=== PATIENT | male | born 1975 | race Caucasian/White ===

== ENCOUNTER 2017-03-12 19:43 | Emergency (ER) | payer MEDICAID ==
[2017-03-12 20:02] VITALS: BP 118/82
[2017-03-12 20:34] LABS: Hematocrit 45.3 % (42.0-52.0); Hemoglobin 15.8 gm/dL (13.5-18.0); Mean Cell Volume 87.5 fl (78-100); Mean Corpuscular Hemoglobin 30.5 pg (27-31); Mean Corpuscular Hgb Conc 34.9 g/dl (32-36); Mean Platelet Volume 9.4 fl (6.0-9.5); Neutrophil # 2.9 K/mm3 (1.3-6.0); Neutrophil % 59.7 % (42-75.0); Platelet Count 153 K/mm3 (150-450); Red Blood Count 5.18 M/mm3 (4.7-6.0); Red Cell Distribution Width 12.8 % (11.5-14.0); White Blood Count 4.9 K/mm3 (4.0-10.5)
--- NOTE | 2017-03-12 21:38 | ERNOTE ---
Lower Extremity HPI - Narrative Date of Service: 03/12/17 - General Lower Extremities Pain: leg: right - The right leg is more muscular than the left. No edema present. Compartments are soft and non tender. Source: patient Exam Limitations: no limitations - Immun/Allergies/Home Medications Immunizations: IMMUNIZATION HX Immunizations Up to Date Yes History of Influenza Vaccine Yes Hx Pneumococcal Vaccination No Allergies/Adverse Reactions: Allergies Allergy/AdvReac Type Severity Reaction Status Date / Time Penicillins Allergy Mild Hives Verified 03/12/17 20:03 codeine [Codeine] AdvReac Mild Itching Verified 03/12/17 20:03 Home Medications: HOME MEDICATIONS Gemfibrozil [Lopid] 600 mg PO BID 06/14/13 [Last Taken Unknown] Escitalopram Oxalate [Lexapro] 20 mg PO DAILY 03/28/14 [Last Taken Unknown] traZODone HCL [Desyrel] 100 mg PO HS 03/28/14 [Last Taken Unknown] Blood Sugar Diagnostic, Rob [Accu-Chek Compact] 1 each MC DAILY 09/26/14 [Last Taken Unknown] Oxybutynin Chloride [Ditropan] 5 mg PO BID 09/26/14 [Last Taken Unknown] clonazePAM [Klonopin] 1 mg PO TID PRN 06/27/15 [Last Taken Unknown] Lisinopril [Zestril] 20 mg PO DAILY 03/11/17 [Last Taken Unknown] metFORMIN HCL [Glucophage] 1,000 mg PO BIDWM 03/11/17 [Last Taken Unknown] Naproxen 500 mg PO BID #30 tablet. 03/12/17 [Last Taken Unknown] - History of Present Illness Narrative: 41 year old that was concerned about having a DVT in the right leg. Claims that there is pain in the right thigh that was rated 7/10 but appears very relaxed. no pain medications were taken prior to being seen in the ED. Denies any previous PE, DVT, trauma, recent surgery, fevers, chills, numbness or tingling in the lower extremities. Location of Incident: other Method of Injury: Reports: other - no injury Modifying Factors - (Improves): Reports: other - nothing Modifying Factors - (Worsens): Reports: other - nothing Review of Systems - Review of Systems Constitutional: Present: no symptoms reported EYE: Present: no symptoms reported ENT: Present: no symptoms reported Respiratory: Present: no symptoms reported Cardiology: Present: no symptoms reported Gastrointestinal/Abdominal: Present: no symptoms reported Genitourinary: Present: no symptoms reported Musculoskeletal: Present: See HPI Skin: Present: no symptoms reported Neurological: Present: no symptoms reported Endocrine: Present: no symptoms reported Hematologic/Lymphatic: Present: no symptoms reported Psych: Present: no symptoms reported - Patient's Past Medical History Patient History - Medical: ADHD, Anxiety, Arthritis, Chronic Pain, Diabetes Type 2, Depression, Headache, Migraines, UTI'S, Other Patient History - Cardiac/Respiratory: Asthma, Bronchitis, Hypertension, Hyperlipidemia, Pneumonia Patient History - Cancer: No Hx of Cancer Patient History - Surgical Procedures: Ear Tubes, T & A, Other Patient History - Other: None - Social History Living Situations: other Abuse History: No History of abuse Psych History: Psychiatric Hx, Hx of Anxiety, Hx of Depression, Hx of Violent Behavior, Hx of Psychiatric Tx, Current tx/ever been on anti-depressants or anti -anxiety meds Smoking Status: Former smoker Do you dip or chew tobacco: Yes Alcohol Use: none Drug Use: other - Immunizations Immunizations Up to Date: Yes Hx Pneumococcal Vaccination: No History of Influenza Vaccine: Yes Physical Exam - Physical Exam General Appearance: Present: no apparent distress Eye Exam: Normal inspection: bilateral, PERRL: bilateral Ears, Nose, Throat: Present: normal ENT inspection Neck: Present: normal inspection, supple, full range of motion Respiratory: Present: no respiratory distress, normal breath sounds Gastrointestinal/Abdominal: Present: nontender, nondistended Back Exam: Present: normal inspection Extremity Exam: Present: normal inspection, non-tender, normal range of motion, other - He was able to stand on the right leg without significant pain. No swelling or edema present in the thigh or leg. 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 - Vital Signs Patient's Vital Signs:: I have reviewed the patient's vital signs. Vital Signs: Vital Signs 03/12/17 19:55 Temperature 36.9 C Pulse Rate 99 Respiratory 18 Rate Blood Pressure 118/82 O2 Sat by Pulse 97 Oximetry - Progress/Reassessment Chief Complaint: Lower Extremity Pain/ Injury Progress:: Unchanged Progress Note-Subjective: 03/12/17 21:32 The pretest probability of a DVT was low, in addition the D Dimer was also negative. Departure Clinical Impression: Pain in right thigh - Departure Disposition: Home self-care Condition: Good Instructions: Muscle Cramps and Spasms, [id number] Print Language: Venezuelan Referrals: Malu Saravia ARNP [Primary Care Provider] - Prescriptions: Naproxen 500 mg PO BID #30 tablet.
[2017-03-12 21:47] LABS: Cocaine Ur Negative (NEGATIVE); Urine Barbiturate Negative (NEGATIVE); Urine Benzodiazepines Negative (NEGATIVE); Urine Opiates Negative (NEGATIVE); Urine PCP Negative (NEGATIVE); Urine THC Negative (NEGATIVE)
--- OUTSIDE RECORDS SUMMARY | 2017-03-12 21:50 | XMS REPORT | Continuity of Care Document ---
:1975 Author Organization [facility] ([facility]) Address [place] [address] Phone [phone] Care Team Providers Name Role Phone Pepe Díaz Primary Care Provider [phone] Source Comments This disclosure is being made pursuant to the Care Everywhere program, applicable federal and state laws, and may not contain all informaitonavailable regarding this patient.[facility] ([facility]) Active Allergies and Adverse Reactions Allergen Noted Date Severity Reactions Comments Codeine 12/11/2012 High Urticaria (Hives) Penicillins Unknown Current Medications Prescription Sig. Disp. Refills Start Date End Date Status gemfibrozil 600 Take 1 Tab by mouth 2 120 Tab 6 12/11/2012 Active mg tablet times daily with meals. Indications: HYPERTRIGLYCERIDEMIA niacin 500 mg XR Take 1 Tab by mouth at 60 Tab 6 12/11/2012 Active tablet bedtime. Indications: MIXED HYPERLIPIDEMIA buPROPion (ZYBAN) Take 1 Tab by mouth 2 84 Tab 0 12/11/2012 Active 150 mg SR tablet times daily. Take for 1 week before stopping tobacco use. Indications: SMOKING CESSATION nicotine 14 mg/24 apply 1 Patch on the skin 14 Patch 0 12/11/2012 Active hr patch daily. Indications: SMOKING CESSATION nicotine 21 mg/24 apply 1 Patch on the skin 42 Patch 0 12/11/2012 Active hr patch daily. Indications: SMOKING CESSATION nicotine 7 mg/24 apply 1 Patch on the skin 14 Patch 0 12/11/2012 Active hr patch daily. Indications: SMOKING CESSATION venlafaxine 75 mg Take 1 Tab by mouth 3 90 Tab 3 01/30/2013 Active tablet times daily. Indications: GENERALIZED ANXIETY DISORDER, MAJOR DEPRESSIVE DISORDER miconazole Powd 1 Bottle 2 times daily. 1 Bottle 3 03/28/2013 Active Indications: ABNORMAL DESQUAMATION lisinopril 10 mg Take 10 mg by mouth Active tablet daily. aspirin 81 mg EC Take 81 mg by mouth Active tablet daily. metFORMIN 1,000 Take 1,000 mg by mouth 2 Active mg tablet times daily. cloNIDine HCl 0.1 Take 0.1 mg by mouth 2 Active mg tablet times daily. traZODone 150 mg Take 300 mg by mouth at Active tablet bedtime. citalopram 20 mg Take 60 mg by mouth Active tablet daily. melatonin 3 mg Take 1 tablet (3 mg 30 tablet 4 08/19/2016 Active tablet total) by mouth at bedtime. lamoTRIgine 25 mg Take 75 mg by mouth Active tablet daily. Active Problems Problem Noted Date Diabetes mellitus screening 03/28/2013 HTN (hypertension) 12/11/2012 Dyslipidemia 12/11/2012 Tobacco abuse 12/11/2012 Depression 12/11/2012 Anxiety 12/11/2012 Polycythemia 06/16/2009 Resolved Problems Problem Noted Date Resolved Date Normal physical exam 12/11/2012 03/28/2013 Obesity 12/11/2012 03/28/2013 Immunizations Name Dates Previously Given Next Due DTaP, unspecified 12/11/2010 Social History Tobacco Use Types Packs/Day Years Used Date Former Smoker Cigarettes 2 15 Quit: 04/10/2011 Smokeless Tobacco: Current User Chew Tobacco Cessation:Counseling Given: Yes Comments: Last Filed Vital Signs Vital Sign Reading Time Taken Blood Pressure 138/92 11/30/2016 8:44 AM SERVICE ORDER CLERK Pulse 89 11/30/2016 8:44 AM SERVICE ORDER CLERK Temperature 36.3 C (97.3 F) 03/28/2013 1:12 PM CDT Respiratory Rate - - Height 1.727 m (5' 7.99") 08/19/2016 1:32 PM CDT Weight 90.266 kg (199 lb) 11/30/2016 8:44 AM SERVICE ORDER CLERK Body Mass Index 30.26 11/30/2016 8:44 AM SERVICE ORDER CLERK Oxygen Saturation 95% 11/30/2016 8:44 AM SERVICE ORDER CLERK Plan of Care Patient Goal Type Goal Weight Weight below 90 kg (199 lb) Lifestyle Quit smoking / using tobacco Date Type Specialty Providers Description 04/05/2017 Appointment Neurology Brandie Juan MD Chief Comp: Patient [address] Rep[place] [address] [phone] (Fax) Health Maintenance Due Date Last Done Comments Hepatitis B Vaccine (1 of 3 - Primary Series) 1975 Tdap Vaccine 1984 MMR Vaccine 1991 Influenza Vaccine: Seasonal (#1) 06/28/2016 Lipid Disorder Screening 12/11/2017 12/11/2012 Td Vaccine 12/11/2020 12/11/2010 Results from Last 3 Months Not on file
== END 2017-03-12 21:50 | disposition home or self-care (01) ==
LOC: ER 19:43
DX: M79.651 Pain in right thigh (principal); Z87.440 Personal history of urinary (tract) infections; F17.220 Nicotine dependence, chewing tobacco, uncomplicated; E11.9 Type 2 diabetes mellitus without complications; F41.9 Anxiety disorder, unspecified; I10 Essential (primary) hypertension; E78.5 Hyperlipidemia, unspecified; F32.9 Major depressive disorder, single episode, unspecified
CPT/HCPCS: 36415; 80307; 85025; 85379; 99284; G0481

== ENCOUNTER 2017-03-14 07:52 | Day surgery (SDC) | payer MEDICAID ==
[~2017-03-14 07:52] MED LIST: RINGERS SOLUTION,LACTATED 1,000 ML IV PRN; ceFAZolin SODIUM 1 GM VIAL IV PRN
--- OUTSIDE RECORDS SUMMARY | 2017-03-14 07:57 | XMS REPORT | Continuity of Care Document ---
:1975 Author Organization [facility] ([facility]) [place] [address] Phone [phone] Care Team Providers Name Role Phone Pepe Díaz Primary Care Provider [phone] Source Comments This disclosure is being made pursuant to the Care Everywhere program, applicable federal and state laws, and may not contain all informaitonavailable regarding this patient.[facility] ([facility]) Active Allergies and Adverse Reactions Allergen Noted [...] Taken Blood Pressure 138/92 11/30/2016 8:44 AM [facility] Pulse 89 11/30/2016 8:44 AM [facility] Temperature 36.3 C (97.3 F) 03/28/2013 1:12 PM CDT Respiratory Rate - - Height 1.727 m (5' 7.99") 08/19/2016 1:32 PM CDT Weight 90.266 kg (199 lb) 11/30/2016 8:44 AM [facility] Body Mass Index 30.26 11/30/2016 8:44 AM [facility] Oxygen Saturation 95% 11/30/2016 8:44 AM [facility] Plan of Care Patient Goal Type Goal Weight Weight below 90 kg (199 lb) Lifestyle Quit smoking / using tobacco Date Type Specialty Providers Description 04/05/2017 Appointment Neurology Brandie Juan MD Chief Comp: Patient [address] [place] [address] [phone] (Fax) Health Maintenance Due Date Last Done Comments Hepatitis B Vaccine (1 of 3 - Primary Series) 1975 Tdap Vaccine 1984 MMR Vaccine 1991 Influenza Vaccine: Seasonal (#1) 06/28/2016 Lipid Disorder Screening 12/11/2017 12/11/2012 Td Vaccine 12/11/2020 12/11/2010 Results from Last 3 Months Not on file
[2017-03-14] MEDS ORDERED: RINGERS SOLUTION,LACTATED 1,000 ML IV ONE ×2 (10:15→11:30)
[2017-03-14] MEDS ORDERED: BUPIVACAINE HCL 50 ML VIAL IJ ONE (11:50)
[2017-03-14 13:04] VITALS: BP 134/71
--- NOTE | 2017-03-14 18:21 | OR ---
Operative Report - Dictated Report Narrative: Date: 03/14/2017 Physician: Diego Boucher M.D. An/Syq 13 Nav/C2 Operator: Brandon Gonsales PA-C Preoperative diagnosis: Left carpal tunnel syndrome Postoperative diagnosis: Left carpal tunnel syndrome Procedure: Endoscopic left carpal tunnel release Anesthesia: MAC plus local Complications: None Estimated blood loss: Minimal Tourniquet time: 8 Minutes at 250 mmHg Specimens: None Retained implants: None Drains: None Indications: Mr. Suarez Is a 41-year-old gentleman who has been followed in my clinic with complaints of carpal tunnel syndrome. Physical exam as well as diagnostic testing showed compression of the median nerve compatible with carpal tunnel syndrome. Conservative measures have failed including but not limited to activity modification, medications, and/or bracing. The risks, benefits, and alternatives were discussed in clinic. The risks being bleeding, infection, nerve, tendon, blood vessel injury, persistent pain, wound competitions, weakness, palm pain, need for additional procedures, and persistent symptoms. Consent was obtained in the clinic. Procedure: After marking the correct extremity in the preoperative holding area, a timeout was performed in the operating room. IV antibiotics consisting of Ancef were administered prior to the procedure. A well-padded tourniquet was applied to the operative upper arm. The arm was exsanguinated and the tourniquet was inflated to 250 mmHg. 0.5% Marcaine without epinephrine was infused into the projected portal sites. Using Loupe magnification, a transverse incision was made in the proximal wrist flexion crease just ulnar to the ulnar to the palmaris longus tendon or in line with approximately the ring finger. Blunt dissection and hemostasis with bipolar cautery was utilized down to the forearm fascia. The forearm fascia was split longitudinally just ulnar to the palmaris longus exposing the entry into the carpal tunnel. A Gastonia was placed under the transverse carpal ligament elevating the soft tissues under the dorsal aspect of the transverse carpal ligament. This was confirmed to be under the transverse carpal ligament based on the corrugated nature of the tissue. Once we had removed soft tissues from the transverse carpal ligament, a blunt trocar and cannula was introduced under the transverse carpal ligament exiting the palm through a saba incision. The hand was then placed in a extension holding device and the camera was introduced into the cannula. A probe was utilized in order to ensure that all soft tissues were elevated off the dorsal aspect of the transverse carpal ligament and ensuring that all tissues were running transversely. No vascular or neurologic tissues were visualized. The push, followed by probe, followed by hook blades was utilized to transect the distal one half of the transverse carpal ligament. This allowed for ingress of fat. The camera was then placed distally looking proximally, and the proximal one half of the transverse carpal ligament was transected using the hook blade. This again allowed for ingress of fat. The probe blade was utilized in order to release any additional remaining fibers. Once it was felt that the transverse carpal ligament was completely transected, the blunt trocar was reintroduced into the trocar and removed in whole. A Ragnell was utilized in order to visualize the carpal tunnel ensuring that the transverse carpal ligament was completely released using a Gastonia. The distal forearm fascia was released ensuring that the median nerve was completely decompressed utilizing tenotomy scissors. Once it was felt that all the tissues overlying the median nerve were completely released, the wounds were thoroughly irrigated with saline which passed freely from the proximal to distal portal holes. Tourniquet was deflated and hemostasis was obtained with pressure as well as bipolar cautery. Once bleeding had resolved and there was no excessive bleeding , the wounds were closed with interrupted nylon. Xeroform, 4 x 4's, soft roll, and a well-padded dorsal short arm wrist splint was applied, and the patient was awoken and transferred to the postanesthesia care unit in stable condition. All sponge, needle, blade, and instrument counts were correct prior to closing the wounds. Additional 0.5% Marcaine without epinephrine was infused into the skin edges for pain control.
== END 2017-03-14 07:53 | disposition home or self-care (01) ==
LOC: AMB 07:52
PROVIDERS: ATTEND Orthopaedic Surgery
PROC: 01N54ZZ Release Median Nerve, Percutaneous Endoscopic Approach (ICD-10-PCS; principal; 2017-03-14 11:30)
DX: G56.02 Carpal tunnel syndrome, left upper limb (principal); E11.9 Type 2 diabetes mellitus without complications; I10 Essential (primary) hypertension; J45.909 Unspecified asthma, uncomplicated; F41.9 Anxiety disorder, unspecified; F32.9 Major depressive disorder, single episode, unspecified; F17.200 Nicotine dependence, unspecified, uncomplicated; Z68.28 Body mass index [BMI] 28.0-28.9, adult

== ENCOUNTER 2017-03-24 18:59 | Emergency (ER) | payer MEDICAID ==
--- OUTSIDE RECORDS SUMMARY | 2017-03-24 20:34 | XMS REPORT | Continuity of Care Document ---
:1975 Author Organization [facility] ([facility]) Address [place] [address] Phone [phone] Care Team Providers Name Role Phone Pepe Díaz Primary Care Provider [phone] Source Comments This disclosure is being made pursuant to the Care Everywhere program, applicable federal and state laws, and may not contain all informaitonavailable regarding this patient.[facility] ([facility]) Active Allergies and Adverse Reactions Allergen [...] Taken Blood Pressure 138/92 11/30/2016 8:44 AM COPRA PROCESSOR Pulse 89 11/30/2016 8:44 AM COPRA PROCESSOR Temperature 36.3 C (97.3 F) 03/28/2013 1:12 PM CDT Respiratory Rate - - Height 1.727 m (5' 7.99") 08/19/2016 1:32 PM CDT Weight 90.266 kg (199 lb) 11/30/2016 8:44 AM COPRA PROCESSOR Body Mass Index 30.26 11/30/2016 8:44 AM COPRA PROCESSOR Oxygen Saturation 95% 11/30/2016 8:44 AM COPRA PROCESSOR Plan of Care Patient Goal Type Goal Weight Weight below 90 kg (199 lb) Lifestyle Quit smoking / using tobacco Date Type Specialty Providers Description 04/05/2017 Appointment Neurology Brandie Juan MD Chief Comp: Patient [address] [place] [address] [phone] (Fax) Health Maintenance Due Date Last Done Comments Hepatitis B Vaccine (1 of 3 - Primary Series) 1975 Tdap Vaccine 1984 MMR Vaccine 1991 Influenza Vaccine: Seasonal (#1) 06/28/2016 Lipid Disorder Screening 12/11/2017 12/11/2012 Td Vaccine 12/11/2020 12/11/2010 Results from Last 3 Months Not on file
[2017-03-24 20:57] LABS: Hematocrit 44.7 % (42.0-52.0); Hemoglobin 15.5 gm/dL (13.5-18.0); Mean Corpuscular Hemoglobin 30.2 pg (27-31); Mean Corpuscular Hgb Conc 34.7 g/dl (32-36); Mean Platelet Volume 9.1 fl (6.0-9.5); Neutrophil # 4.9 K/mm3 (1.3-6.0); Neutrophil % 72.6 % (42-75.0); Platelet Count 183 K/mm3 (150-450); Red Blood Count 5.14 M/mm3 (4.7-6.0); Red Cell Distribution Width 12.9 % (11.5-14.0); White Blood Count 6.7 K/mm3 (4.0-10.5)
--- NOTE | 2017-03-24 20:58 | ERNOTE ---
Medical Problem HPI - Narrative Date of Service: 03/24/17 - General Chief Complaint: Diabetes Related Problem Time Seen by Provider: 03/24/17 20:22 Source: patient Exam Limitations: no limitations - Immun/Allergies/Home Medications Immunizations: IMMUNIZATION HX Immunizations Up to Date Yes History of Influenza Vaccine Yes Hx Pneumococcal Vaccination No Allergies/Adverse Reactions: Allergies Penicillins Allergy (Mild, Verified 03/14/17 09:57) Hives codeine [Codeine] Adverse Reaction (Mild, Verified 03/14/17 09:57) Itching Home Medications: HOME MEDICATIONS Gemfibrozil [Lopid] 600 mg PO BID 06/14/13 [Last Taken Unknown] Escitalopram Oxalate [Lexapro] 20 mg PO DAILY 03/28/14 [Last Taken Unknown] traZODone HCL [Desyrel] 100 mg PO HS 03/28/14 [Last Taken Unknown] Blood Sugar Diagnostic, Drum [Accu-Chek Compact] 1 each MC DAILY 09/26/14 [Last Taken Unknown] Oxybutynin Chloride [Ditropan] 5 mg PO BID 09/26/14 [Last Taken Unknown] clonazePAM [Klonopin] 1 mg PO TID PRN 06/27/15 [Last Taken Unknown] Lisinopril [Zestril] 20 mg PO DAILY 03/11/17 [Last Taken 03/14/17 07:00] metFORMIN HCL [Glucophage] 1,000 mg PO BIDWM 03/11/17 [Last Taken Unknown] Naproxen 500 mg PO BID #30 tablet. 03/12/17 [Last Taken Unknown] oxyCODONE HCL/ACETAMINOPHEN [Oxycodone-Acetaminophen 5-325] 1 each PO Q4H PRN # 30 tablet 03/14/17 [Last Taken Unknown] Azithromycin [Zithromax] 500 mg PO NOW #6 tab 03/24/17 [Last Taken Unknown] - History of Present History Narrative: 40-year-old male presents to the emergency room for sinus pain. States he's had for several days. Patient also states left wrist surgical site is red. Date (Duration): 03/24/17 Timing: getting worse Severity: mild Review of Systems - Review of Systems Constitutional: Present: See HPI, malaise EYE: Present: no symptoms reported ENT: Present: nose congestion Respiratory: Present: no symptoms reported Cardiology: Present: no symptoms reported Gastrointestinal/Abdominal: Present: no symptoms reported Genitourinary: Present: no symptoms reported Musculoskeletal: Present: no symptoms reported Skin: Present: See HPI, change in color - suture insertion site left wrist Neurological: Present: no symptoms reported Endocrine: Present: other - patient states at home his blood glucose was high over 300 Hematologic/Lymphatic: Present: no symptoms reported Psych: Present: no symptoms reported All Other Systems: All systems neg except as marked - Patient's Past Medical History Patient History - Medical: Anxiety, Depression Patient History - Cardiac/Respiratory: Asthma, Hypertension, Hyperlipidemia Patient History - Cancer: No Hx of Cancer Patient History - Surgical Procedures: Ear Tubes, T & A, Other Patient History - Other: None - Family History Brother Family History - Medical: History Unknown Family History - Cardiac/Respiratory: History Unknown Family History - Cancer: History Unknown Father Family History - Medical: Diabetes Type 2 Family History - Cardiac/Respiratory: No pertinent hx Family History - Cancer: No pertinent family hx Mother Family History - Medical: , No pertinent hx Family History - Cardiac/Respiratory: No pertinent hx Family History - Cancer: Bone - Social History Living Situations: parents Abuse History: No History of abuse Psych History: No pertinent hx Smoking Status: Former smoker Have you smoked in the past 12 months: Yes Do you dip or chew tobacco: Yes Patient requests Smoking Cessation Consult: No Initiate information on Smoking Cessation: No Alcohol Use: none Drug Use: other - Immunizations Immunizations Up to Date: Yes Hx Pneumococcal Vaccination: No History of Influenza Vaccine: Yes Physical Exam - Physical Exam Narrative: this provider observed patient laying sideways on the exam table with his feet propped up on a chair playing with his it help desk technician. Patient had to be asked to spit out a large wad of "dip" so that this provider could understand him during exam and perform ENT eval. Patient has sinus pressure pain upon exam. Left wrist has a small amount of redness at suture insertion site. Sutures appear loose. patient states he has tugged at them today. No s/s of infection observed. Patient is to see his surgeon on Tuesday. the rest of his exam was normal General Appearance: Present: wd/wn, alert, no apparent distress Eye Exam: Normal inspection: bilateral Ears, Nose, Throat: Present: sinus pain/drainage, normal pharynx Neck: Present: normal inspection, nontender, full range of motion Respiratory: Present: no respiratory distress, normal breath sounds, lungs clear Cardiovascular/Chest: Present: regular rate, rhythm, no murmur, normal peripheral pulses Gastrointestinal/Abdominal: Present: normal bowel sounds, nontender, soft Back Exam: Present: normal inspection, normal range of motion Extremity Exam: Present: normal inspection, normal range of motion, no edema Neurological Exam: Present: alert, oriented, normal mood/affect, no motor/ sensory deficits Skin Exam: Present: normal color, warm/dry Lymphatic Exam: Present: no adenopathy ED Progress - Results and Orders Patient's Lab Results:: I have reviewed the patient's lab results. Results and Orders: no acute findings - Vital Signs Vital Signs: Vital Signs 03/24/17 19:15 Temperature 37.6 C H Pulse Rate 110 H Respiratory 14 Rate Blood Pressure 125/73 O2 Sat by Pulse 97 Oximetry - Progress/Reassessment Chief Complaint: Diabetes Related Problem Departure - Departure Clinical Impression: Sinusitis Qualifiers: Sinusitis location: unspecified location Chronicity: acute Recurrence: non- recurrent Qualified Code(s): J01.90 - Acute sinusitis, unspecified Disposition: Home Follow Up Needed Condition: Stable Instructions: Sinusitis, Adult, [id number] Additional Instructions: Attending any previous medications as directed. Follow up with your primary care provider in the next 2-3 days. Take antibiotics as directed. He may take [id number] pain medication for sinus pressure. Return to the emergency room if symptoms persist or you are unable to be control your fever or pain. Referrals: Malu Saravia ARNP [Primary Care Provider] - Prescriptions: Azithromycin [Zithromax] 500 mg PO NOW #6 tab
[2017-03-24 21:16] LABS: Hemoglobin A1C 6.2 % (4.00-6.0)
[2017-03-24 21:18] LABS: Albumin * 3.7 gm/dl (3.4-5.0); Anion Gap 15.1 mmol/L (6.8-13.8); BUN/Creatinine Ratio 12.6 (9.0-21.6); Bilirubin, Total 0.7 mg/dL (0.0-1.1); Ca. Corrected For Albumin 8.9 mg/dL (8.4-10.2); Carbon Dioxide 24.7 mmol/L (24-32.6); Potassium 3.8 mmol/L (3.4-4.6); Total Protein 6.6 gm/dL (6.2-8.2)
[2017-03-24 21:47] VITALS: BP 141/74
== END 2017-03-24 21:45 | disposition home or self-care (01) ==
LOC: ER 18:59
DX: J01.90 Acute sinusitis, unspecified (principal); Z72.0 Tobacco use; I10 Essential (primary) hypertension; E78.5 Hyperlipidemia, unspecified; F41.8 Other specified anxiety disorders

== ENCOUNTER 2017-05-29 17:21 | Emergency (ER) | payer MEDICAID ==
--- NOTE | 2017-05-29 18:06 | ERNOTE ---
Upper Extremity HPI - Narrative Date of Service: 05/29/17 - General Extremities Pain Location: hand: left Time Seen by Provider: 05/29/17 17:57 Source: patient Exam Limitations: no limitations - Immun/Allergies/Home Medications Immunizations: IMMUNIZATION HX Immunizations Up to Date Yes History of Influenza Vaccine Yes Hx Pneumococcal Vaccination No Allergies/Adverse Reactions: Allergies Allergy/AdvReac Type Severity Reaction Status Date / Time Penicillins Allergy Mild Hives Verified 05/29/17 17:52 codeine [Codeine] AdvReac Mild Itching Verified 05/29/17 17:52 Home Medications: HOME MEDICATIONS Gemfibrozil [Lopid] 600 mg PO BID 06/14/13 [Last Taken Unknown] Escitalopram Oxalate [Lexapro] 20 mg PO DAILY 03/28/14 [Last Taken Unknown] traZODone HCL [Desyrel] 100 mg PO HS 03/28/14 [Last Taken Unknown] Blood Sugar Diagnostic, Rob [Accu-Chek Compact] 1 each MC DAILY 09/26/14 [Last Taken Unknown] Oxybutynin Chloride [Ditropan] 5 mg PO BID 09/26/14 [Last Taken Unknown] clonazePAM [Klonopin] 1 mg PO TID PRN 06/27/15 [Last Taken Unknown] Lisinopril [Zestril] 20 mg PO DAILY 03/11/17 [Last Taken 03/14/17 07:00] metFORMIN HCL [Glucophage] 1,000 mg PO BIDWM 03/11/17 [Last Taken Unknown] Naproxen 500 mg PO BID #30 tablet. 03/12/17 [Last Taken Unknown] oxyCODONE HCL/ACETAMINOPHEN [Oxycodone-Acetaminophen 5-325] 1 each PO Q4H PRN # 30 tablet 03/14/17 [Last Taken Unknown] HYDROcodone/ACETAMINOPHEN [[place] 5-325 Tablet] 1 each PO Q4H PRN #12 tablet 01/14 [Last Taken Unknown] Sulfamethoxazole/Trimethoprim [Bactrim Ds] 1 tab PO BID #20 tab 05/29/17 [Last Taken Unknown] - History of Present Illness Narrative: This is a 41-year-old right-hand dominant male with a history of insulin- dependent diabetes who comes to the emergency department with 4-6 hours of left hand pain and swelling. The patient states that he was working around some wasps today but does not remember getting stung. About 4 hours ago the patient noticed that the middle of the dorsum of the left hand was getting swollen and tender. This has continued to worsen over the last several hours. The patient denies any fever or chills. He denies punching anything. He denies recent trauma. He does not inject any illicit drugs but he does use insulin. The patient denies ever having had this happen in the past. No fever or chills nausea or vomiting diarrhea or constipation shortness of breath or chest pain. Occurred: this afternoon Location of Incident: other Severity: mild - no known injury Method of Injury: Reports: unknown Modifying Factors - (Improves): Reports: other Modifying Factors - (Worsens): Reports: other - on none Associated Symptoms: Denies: tingling, weakness, numbness distally, loss of feeling Other Injuries: Reports: none Prior Treament: Denies: recently seen, treated by physician, recently hospitalized, similar symptoms before, currently on antibiotics Review of Systems - Narrative Narrative: Except as above the remainder the review of systems otherwise negative - Review of Systems Constitutional: Present: no symptoms reported, See HPI EYE: Present: no symptoms reported ENT: Present: no symptoms reported Respiratory: Present: no symptoms reported Cardiology: Present: no symptoms reported Gastrointestinal/Abdominal: Present: no symptoms reported Genitourinary: Present: no symptoms reported Musculoskeletal: Present: See HPI Skin: Present: See HPI Neurological: Present: no symptoms reported Endocrine: Present: no symptoms reported Hematologic/Lymphatic: Present: no symptoms reported Psych: Present: no symptoms reported - Patient's Past Medical History Patient History - Medical: Anxiety, Depression Patient History - Cardiac/Respiratory: Asthma, Hypertension, Hyperlipidemia Patient History - Cancer: No Hx of Cancer Patient History - Surgical Procedures: Ear Tubes, T & A, Other Patient History - Other: None - Family History Brother Family History - Medical: History Unknown Family History - Cardiac/Respiratory: History Unknown Family History - Cancer: History Unknown Father Family History - Medical: Diabetes Type 2 Family History - Cardiac/Respiratory: No pertinent hx Family History - Cancer: No pertinent family hx Mother Family History - Medical: , No pertinent hx Family History - Cardiac/Respiratory: No pertinent hx Family History - Cancer: Bone - Social History Living Situations: parents Abuse History: No History of abuse Psych History: No pertinent hx Smoking Status: Former smoker Do you dip or chew tobacco: Yes Alcohol Use: none Drug Use: none, other - Immunizations Immunizations Up to Date: Yes Hx Pneumococcal Vaccination: No History of Influenza Vaccine: Yes Physical Exam - Physical Exam General Appearance: Present: wd/wn, alert, no apparent distress Ears, Nose, Throat: Present: normal ENT inspection Neck: Present: normal inspection, nontender Respiratory: Present: no respiratory distress, normal breath sounds, no accessory muscle use, chest nontender Cardiovascular/Chest: Present: regular rate, rhythm, no murmur, normal peripheral pulses Gastrointestinal/Abdominal: Present: normal bowel sounds, nontender, nondistended, soft, no organomegaly Back Exam: Present: normal inspection, normal range of motion Extremity Exam: Present: other - and has swelling on the dorsum of the left hand involving the carpals of digits 34 and 5. There is no extension proximal to the wrist. It does not seem to involve the fingers themselves. I do not see any definite openings or foci for infection. There is no obvious entrance of a foreign body such as a stinger. This really has more of the appearance of an acute allergic reaction or injury rather than cellulitis. It does not have the brawny field. Neurological Exam: Present: alert, oriented, normal mood/affect, no motor/ sensory deficits Skin Exam: Present: other - redness as described in the hand exam Lymphatic Exam: Present: no adenopathy ED Progress - Results and Orders Results and Orders: none - Vital Signs Patient's Vital Signs:: I have reviewed the patient's vital signs. Vital Signs: Vital Signs 05/29/17 17:46 Temperature 37.5 C Pulse Rate 95 Respiratory 14 Rate Blood Pressure 126/75 O2 Sat by Pulse 98 Oximetry - X-Ray X-Ray #1 X-Ray: hand - no fracture or obvious dislocation. Interpretation: Interp. by me - Progress/Reassessment Chief Complaint: Hand Injury/Pain Progress:: Unchanged Progress Note-Subjective: 05/29/17 19:56 the patient patient states that it is no better. He still has pain. The redness is still in the same circumference. I've discussed with him keeping a close eye on it. Departure Clinical Impression: Hand pain - Departure Disposition: Home self-care Condition: Stable Additional Instructions: As we discussed, your labs do not show signs of an infection, but I believe treating it with a week of antibiotic is prudent. I do not see anything fractured. My suspicion is that you either got stung or irritated the skin from something that got onto it. Nevertheless I want you to keep a very close eye on this area. If the redness gets worse and starts moving up her arm, you develop fever, increased pain, or any new worrisome symptoms he needs to return to the emergency room immediately. You can take the prescribed pain medicine every 4 hours as needed for pain. I want you to call your family doctor and set up a follow-up appointment. He can try Benadryl one 25 minute milligram capsule every 6 hours to see if that helps as well. No driving or operating machinery while using the pain medicine. Referrals: Malu Smyth DO [Primary Care Provider] - Prescriptions: HYDROcodone/ACETAMINOPHEN [[place] 5-325 Tablet] 1 each PO Q4H PRN #12 tablet PRN Reason: Pain Sulfamethoxazole/Trimethoprim [Bactrim Ds] 1 tab PO BID #20 tab
[2017-05-29 18:34] LABS: Hematocrit 48.5 % (42.0-52.0); Hemoglobin 16.8 gm/dL (13.5-18.0); Mean Cell Volume 85.5 fl (78-100); Mean Corpuscular Hemoglobin 29.6 pg (27-31); Mean Corpuscular Hgb Conc 34.6 g/dl (32-36); Mean Platelet Volume 9.1 fl (6.0-9.5); Neutrophil % 73.2 % (42-75.0); Platelet Count 153 K/mm3 (150-450); Red Blood Count 5.67 M/mm3 (4.7-6.0); Red Cell Distribution Width 12.8 % (11.5-14.0); White Blood Count 6.8 K/mm3 (4.0-10.5)
[2017-05-29] MEDS ORDERED: HYDROcodone/ACETAMINOPHEN 1 EACH TABLET PO ONE (19:06)
[2017-05-29] MEDS ORDERED: IBUPROFEN 600 MG TABLET PO ONE (19:12)
[2017-05-29] MEDS ORDERED: diphenhydrAMINE HCL 25 MG CAPSULE PO ONE (19:12)
[2017-05-29] MEDS ORDERED: IBUPROFEN 600 MG TABLET ONE (19:18)
[2017-05-29] MEDS ORDERED: diphenhydrAMINE HCL 25 MG CAPSULE ONE (19:18)
[2017-05-29] MEDS ORDERED: HYDROcodone/ACETAMINOPHEN 1 EACH TABLET ONE (19:18)
[2017-05-30 00:38] VITALS: BP 141/84
== END 2017-05-29 20:21 | disposition home or self-care (01) ==
LOC: ER 17:21
DX: M79.641 Pain in right hand (principal); J45.909 Unspecified asthma, uncomplicated; Z72.0 Tobacco use; F41.8 Other specified anxiety disorders; I10 Essential (primary) hypertension; E78.5 Hyperlipidemia, unspecified

== ENCOUNTER 2017-06-04 12:35 | Emergency (ER) | payer MEDICAID ==
[2017-06-04 13:33] LABS: Hematocrit 49.5 % (42.0-52.0); Hemoglobin 16.7 gm/dL (13.5-18.0); Mean Cell Volume 86.1 fl (78-100); Mean Corpuscular Hgb Conc 33.7 g/dl (32-36); Mean Platelet Volume 9.2 fl (6.0-9.5); Neutrophil # 3.1 K/mm3 (1.3-6.0); Neutrophil % 69.3 % (42-75.0); Platelet Count 146 K/mm3 (150-450); Red Blood Count 5.75 M/mm3 (4.7-6.0); Red Cell Distribution Width 13.1 % (11.5-14.0); White Blood Count 4.4 K/mm3 (4.0-10.5)
[2017-06-04 13:45] LABS: Albumin * 3.6 gm/dl (3.4-5.0); Anion Gap 12.4 mmol/L (6.8-13.8); BUN/Creatinine Ratio 14.3 (9.0-21.6); Bilirubin, Total 0.5 mg/dL (0.0-1.1); Ca. Corrected For Albumin 8.8 mg/dL (8.4-10.2); Calcium * 8.8 mg/dL (7.9-10.9); Carbon Dioxide 27.8 mmol/L (24-32.6); Potassium 4.2 mmol/L (3.4-4.6); Total Protein 7.1 gm/dL (6.2-8.2)
--- NOTE | 2017-06-04 13:49 | ERNOTE ---
Integumentary HPI - Narrative Date of Service: 06/04/17 - General Presenting Symptoms: other - Hand swelling Time Seen by Provider: 06/04/17 13:02 Source: patient, RN notes reviewed, old records Exam Limitations: no limitations - Immun/Allergies/Home Medications Immunizations: IMMUNIZATION HX Immunizations Up to Date Yes History of Influenza Vaccine Yes Hx Pneumococcal Vaccination No Allergies/Adverse Reactions: Allergies Allergy/AdvReac Type Severity Reaction Status Date / Time Penicillins Allergy Mild Hives Verified 06/04/17 12:49 codeine [Codeine] AdvReac Mild Itching Verified 06/04/17 12:49 Home Medications: HOME MEDICATIONS Gemfibrozil [Lopid] 600 mg PO BID 06/14/13 [Last Taken Unknown] Escitalopram Oxalate [Lexapro] 20 mg PO DAILY 03/28/14 [Last Taken Unknown] traZODone HCL [Desyrel] 100 mg PO HS 03/28/14 [Last Taken Unknown] Blood Sugar Diagnostic, Rob [Accu-Chek Compact] 1 each MC DAILY 09/26/14 [Last Taken Unknown] Oxybutynin Chloride [Ditropan] 5 mg PO BID 09/26/14 [Last Taken Unknown] clonazePAM [Klonopin] 1 mg PO TID PRN 06/27/15 [Last Taken Unknown] Lisinopril [Zestril] 20 mg PO DAILY 03/11/17 [Last Taken 03/14/17 07:00] metFORMIN HCL [Glucophage] 1,000 mg PO BIDWM 03/11/17 [Last Taken Unknown] Naproxen 500 mg PO BID #30 tablet. 03/12/17 [Last Taken Unknown] HYDROcodone/ACETAMINOPHEN [[place] 5-325 Tablet] 1 each PO Q4H PRN #12 tablet 01/14 [Last Taken Unknown] Sulfamethoxazole/Trimethoprim [Bactrim Ds] 1 tab PO BID #20 tab 05/29/17 [Last Taken Unknown] HYDROcodone/ACETAMINOPHEN [[place] 5-325] 1 - 2 tab PO Q6H PRN #12 tab 06/04/17 [ Last Taken Unknown] - Pain Pain Score: 8 - History of Present Illness Narrative: Ran is a 41-year-old male who returns to the emergency department for ongoing swelling in his left hand. He first noticed the swelling on May 29 and came here shortly afterward for evaluation. There was no known injury. He did report at that time that he had been working around a bunch of wasps, but he did not think he had been stung. CBC was obtained. This was unremarkable. An x-ray was also done that showed a possible metacarpal fracture but the findings did not correlate clinically. The patient has been on Bactrim since he was initially seen. He has not had fevers or chills. He has also been taking [place] for pain. He reports no improvement in the swelling or erythema on the hand. Of note, he had a carpal tunnel release 2 months ago. He did have a fall shortly afterward and attempted to catch himself with the left hand. He had increased pain but this had resolved prior to the current symptoms. Date (Duration): 05/29/17 Quality: Reports: painful Exposure: Reports: no cause identified Prior Treatment: Reports: recently seen, treated by physician, currently on antibiotics Review of Systems - Review of Systems Constitutional: Absent: fever, chills, malaise EYE: Present: no symptoms reported ENT: Present: no symptoms reported Respiratory: Present: no symptoms reported Cardiology: Present: no symptoms reported Gastrointestinal/Abdominal: Absent: nausea, vomiting, abdominal pain, eating less, drinking less Genitourinary: Present: no symptoms reported Musculoskeletal: Absent: joint pain, joint swelling Skin: Present: change in color. Absent: rash, lesions, lumps Neurological: Absent: weakness, numbness, tingling Endocrine: Absent: other - elevated blood glucose Hematologic/Lymphatic: Present: no symptoms reported Psych: Present: no symptoms reported - Patient's Past Medical History Patient History - Medical: Anxiety, Depression Patient History - Cardiac/Respiratory: Asthma, Hypertension, Hyperlipidemia Patient History - Cancer: No Hx of Cancer Patient History - Surgical Procedures: Ear Tubes, T & A, Other Patient History - Other: None - Family History Brother Family History - Medical: History Unknown Family History - Cardiac/Respiratory: History Unknown Family History - Cancer: History Unknown Father Family History - Medical: Diabetes Type 2 Family History - Cardiac/Respiratory: No pertinent hx Family History - Cancer: No pertinent family hx Mother Family History - Medical: , No pertinent hx Family History - Cardiac/Respiratory: No pertinent hx Family History - Cancer: Bone - Social History Living Situations: home Abuse History: No History of abuse Psych History: Hx of Anxiety, Hx of Depression, Current tx/ever been on anti- depressants or anti-anxiety meds Smoking Status: Never smoker Have you smoked in the past 12 months: No Do you dip or chew tobacco: Yes Alcohol Use: none Drug Use: none, other - Immunizations Immunizations Up to Date: Yes Hx Pneumococcal Vaccination: No History of Influenza Vaccine: Yes Physical Exam - Physical Exam General Appearance: Present: wd/wn, alert, no apparent distress, other - Disheveled, poor hygiene Respiratory: Present: no respiratory distress, normal breath sounds, no accessory muscle use, lungs clear Cardiovascular/Chest: Present: regular rate, rhythm, no murmur, normal peripheral pulses Extremity Exam: Present: normal range of motion, extremity edema - dorsum of right hand, other - mild tenderness to dorsum of right hand, no bony deformity. Absent: joint redness, joint swelling Neurological Exam: Present: alert, oriented, normal mood/affect, no motor/ sensory deficits Skin Exam: Present: warm/dry, other - mild erythema to dorsum of right hand, not overly warm to touch, skin intact ED Progress - Results and Orders Patient's Lab Results:: I have reviewed the patient's lab results. - Vital Signs Patient's Vital Signs:: I have reviewed the patient's vital signs. Vital Signs: Vital Signs 06/04/17 12:44 Temperature 36.7 C Pulse Rate 96 Respiratory 16 Rate Blood Pressure 139/97 O2 Sat by Pulse 96 Oximetry - X-Ray X-Ray #1 X-Ray: hand Interpretation: Interp. by me X-ray Comments: Left hand - no acute osseous abnormality noted, previously seen area of concern at the distal 5th metacarpal appears unchanged and there is no focal tenderness noted on exam. Significant edema to dorsum of hand present. - Progress/Reassessment Chief Complaint: Cellulitis Progress:: Unchanged Plan - Plan Plan: Etiology of the hand edema and erythema remains unclear. If this is cellulitis, the Bactrim seems to be working as he has not been ill and has a normal WBC. He is to continue the Bactrim. Instructed to contact orthopedics for f/u d/t his recent surgery. Departure Clinical Impression: Hand edema - Departure Disposition: Home Follow Up Needed Condition: Stable Instructions: Edema, [id number] Additional Instructions: Wear AUDELIA wrap for swelling Continue your current medications Contact orthopedics to arrange follow up Referrals: Diego Boucher MD [Staff Physician] - Prescriptions: HYDROcodone/ACETAMINOPHEN [[place] 5-325] 1 - 2 tab PO Q6H PRN #12 tab PRN Reason: Pain
[2017-06-04 14:22] VITALS: BP 124/82
== END 2017-06-04 14:29 | disposition home or self-care (01) ==
LOC: ER 12:35
DX: R60.0 Localized edema (principal); M79.642 Pain in left hand

== ENCOUNTER 2017-07-21 16:27 | Emergency (ER) | payer MEDICAID ==
[2017-07-21] MEDS ORDERED: HYDROmorphone HCL 2 MG TABLET PO ONE (17:09)
--- NOTE | 2017-07-21 17:13 | ERNOTE ---
Medical Problem HPI - Narrative Date of Service: 07/21/17 - General Chief Complaint: General Assessment Time Seen by Provider: 07/21/17 16:44 Source: patient, family, RN notes reviewed, old records Exam Limitations: no limitations - Immun/Allergies/Home Medications Immunizations: IMMUNIZATION HX Immunizations Up to Date Yes History of Influenza Vaccine Yes Hx Pneumococcal Vaccination No Allergies/Adverse Reactions: Allergies Penicillins Allergy (Mild, Verified 07/21/17 16:34) Hives codeine [Codeine] Adverse Reaction (Mild, Verified 07/21/17 16:34) Itching Home Medications: HOME MEDICATIONS Gemfibrozil [Lopid] 600 mg PO BID 06/14/13 [Last Taken Unknown] Escitalopram Oxalate [Lexapro] 20 mg PO DAILY 03/28/14 [Last Taken Unknown] traZODone HCL [Desyrel] 100 mg PO HS 03/28/14 [Last Taken Unknown] Blood Sugar Diagnostic, Rob [Accu-Chek Compact Plus Strips] 1 each MC DAILY [Last Taken Unknown] Oxybutynin Chloride [Ditropan] 5 mg PO BID 09/26/14 [Last Taken Unknown] clonazePAM [Klonopin] 1 mg PO TID PRN 06/27/15 [Last Taken Unknown] metFORMIN HCL [Glucophage] 1,000 mg PO BIDWM 03/11/17 [Last Taken Unknown] Naproxen 500 mg PO BID #30 tablet. 03/12/17 [Last Taken Unknown] HYDROcodone/ACETAMINOPHEN [[place] 5-325 Tablet] 1 each PO Q4H PRN #12 tablet 01/14 [Last Taken Unknown] HYDROcodone/ACETAMINOPHEN [[place] 5-325] 1 - 2 tab PO Q6H PRN #12 tab 06/04/17 [ Last Taken Unknown] Diazepam 5 mg PO PRN 07/21/17 [Last Taken Unknown] HYDROmorphone HCL [Dilaudid] 2 mg PO QID PRN 07/21/17 [Last Taken Unknown] - History of Present History Narrative: 41 y/o male brought to the ED by ambulance for neck pain and difficulty ambulating after having a cervical spine surgery 2 days ago. He was released from [facility] yesterday. He lives with his father after just getting out of senior living 2 months ago. He reports sleeping most of the day today and not checking his blood sugar or taking his medication. When he woke up late this afternoon he had difficulty ambulating. There was also some sort of dispute with his father. The friend that is with him reports that his father is not able to care for him and wants him placed somewhere permanently. 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 He is already requesting pain medication. He is prescribed Dilaudid and does not think he has taken any since this morning. Review of Systems - Review of Systems Constitutional: Present: fatigue, decreased activity level. Absent: fever, chills EYE: Present: no symptoms reported ENT: Present: no symptoms reported Respiratory: Absent: shortness of breath, cough Cardiology: Absent: chest pain, syncope, edema Gastrointestinal/Abdominal: Present: eating less, drinking less. Absent: nausea , vomiting, abdominal pain Genitourinary: Absent: dysuria, hematuria Musculoskeletal: Present: muscle pain, neck pain. Absent: joint pain Skin: Absent: rash, lesions, lumps, change in color Neurological: Absent: headache, dizziness/light-headedness, numbness, tingling Endocrine: Present: no symptoms reported Hematologic/Lymphatic: Absent: easy bruising, easy bleeding Psych: Present: no symptoms reported - Patient's Past Medical History Patient History - Medical: Anxiety, Depression Patient History - Cardiac/Respiratory: Asthma, Hypertension, Hyperlipidemia Patient History - Cancer: No Hx of Cancer Patient History - Surgical Procedures: Ear Tubes, T & A, Other Patient History - Other: None - Family History Brother Family History - Medical: History Unknown Family History - Cardiac/Respiratory: History Unknown Family History - Cancer: History Unknown Father Family History - Medical: Diabetes Type 2 Family History - Cardiac/Respiratory: No pertinent hx Family History - Cancer: No pertinent family hx Mother Family History - Medical: , No pertinent hx Family History - Cardiac/Respiratory: No pertinent hx Family History - Cancer: Bone - Social History Living Situations: parents Abuse History: No History of abuse Psych History: Hx of Anxiety, Hx of Depression, Current tx/ever been on anti- depressants or anti-anxiety meds Smoking Status: Former smoker Have you smoked in the past 12 months: No Do you dip or chew tobacco: No Alcohol Use: none Drug Use: none, other - Immunizations Immunizations Up to Date: Yes Hx Pneumococcal Vaccination: No History of Influenza Vaccine: Yes Physical Exam - Physical Exam General Appearance: Present: wd/wn, alert, no apparent distress Head Exam: Present: normal inspection Neck: Present: other - Post-op C-collar in place Respiratory: Present: no respiratory distress, normal breath sounds, no accessory muscle use, lungs clear Cardiovascular/Chest: Present: regular rate, rhythm, no murmur, normal peripheral pulses Extremity Exam: Present: normal inspection, non-tender, normal range of motion, no edema, other - normal strength against resistance in lower extremities Neurological Exam: Present: alert, oriented, normal mood/affect, no motor/ sensory deficits Skin Exam: Present: normal color, warm/dry ED Progress - Results and Orders Results and Orders: Blood glucose 128 - Vital Signs Patient's Vital Signs:: I have reviewed the patient's vital signs. Vital Signs: Vital Signs 07/21/17 16:30 Pulse Rate 101 H Respiratory 18 Rate Blood Pressure 133/81 - Progress/Reassessment Chief Complaint: General Assessment Progress:: Improved Plan - Plan Plan: It seems as though patient slept all day without taking his medications. He was then in a lot of pain when he woke up. Discussed that he needs to take his medications and monitor his blood sugar as ordered. He states he is able to do so. Departure - Departure Clinical Impression: Post-op pain Disposition: Home Follow Up Needed Condition: Good Additional Instructions: Monitor your blood sugar and take your medications as directed
[2017-07-21] MEDS ORDERED: HYDROmorphone HCL 2 MG TABLET ONE (17:19)
[2017-07-21 20:58] VITALS: BP 133/88
== END 2017-07-21 18:18 | disposition home or self-care (01) ==
LOC: ER 16:27
DX: G89.18 Other acute postprocedural pain (principal); M54.2 Cervicalgia; Z87.891 Personal history of nicotine dependence; F41.9 Anxiety disorder, unspecified

== ENCOUNTER 2020-08-15 19:50 | Observation (INO) ==
[2020-08-15] MEDS ORDERED: LIDOCAINE HCL 50 ML VIAL IJ ONE (20:32)
[2020-08-15 20:44] LABS: Hematocrit 46.3 % (42.0-52.0); Hemoglobin 15.2 gm/dL (13.5-18.0); Mean Cell Volume 89.7 fl (78-100); Mean Corpuscular Hemoglobin 29.5 pg (27-31); Mean Corpuscular Hgb Conc 32.8 g/dl (32-36); Mean Platelet Volume 9.1 fl (8-11.3); Neutrophil # 13.6 K/mm3 (1.3-6.0); Neutrophil % 86.2 % (42-75.0); Platelet Count 219 K/mm3 (150-450); Red Blood Count 5.16 M/mm3 (4.7-6.0); Red Cell Distribution Width 13.2 % (11.5-14.0); White Blood Count 15.7 K/mm3 (4.0-10.5)
[2020-08-15 20:56] LABS: Albumin * 2.9 gm/dl (3.4-5.0); Anion Gap 15.8 mmol/L (6.8-13.8); BUN/Creatinine Ratio 18.2 (9.0-21.6); Bilirubin, Total 1.2 mg/dL (0.0-1.1); Ca. Corrected For Albumin 9.3 mg/dL (8.4-10.2); Calcium * 8.7 mg/dL (7.9-10.9); Carbon Dioxide 23.2 mmol/L (24-32.6); Total Protein 6.8 gm/dL (6.2-8.2)
[2020-08-15] MEDS: NORMAL SALINE 1,000 ML IV SCH ×4 (20:56→23:51)
[2020-08-15] MEDS ORDERED: cefTRIAXone SODIUM 1,000 MG/100 ML BAG IV ONE (20:58)
[2020-08-15] MEDS ORDERED: VANCOMYCIN/WATER FOR INJ (PEG) 1 GM/200 ML BAG IV ONE (20:58)
[2020-08-15] MEDS ORDERED: IBUPROFEN 400 MG TABLET PO ONE (21:07)
--- NOTE | 2020-08-15 21:07 | ERNOTE ---
Medical Problem HPI - Narrative Date of Service: 08/15/20 - General Chief Complaint: Fever Time Seen by Provider: 08/15/20 20:15 Source: patient Exam Limitations: no limitations - Immun/Allergies/Home Medications Immunizations: IMMUNIZATION HX Immunizations Up to Date Yes History of Influenza Vaccine Yes Hx Pneumococcal Vaccination No Allergies/Adverse Reactions: Allergies Penicillins Allergy (Intermediate, Verified 08/15/20 20:03) Hives codeine [Codeine] Adverse Reaction (Mild, Verified 08/15/20 20:03) Itching latex Adverse Reaction (Mild, Verified 08/15/20 20:03) RASH Home Medications: HOME MEDICATIONS gemfibrozil 600 mg tablet 600 mg PO BID #60 tab 01/11/20 [Last Taken Unknown] lamotrigine 100 mg tablet 50 mg PO DAILY #30 tab 01/11/20 [Last Taken Unknown] metformin 1,000 mg tablet 500 mg PO BIDWM #60 tab 02/01/20 [Last Taken Unknown] gabapentin 800 mg tablet 800 mg PO QID #120 tab 07/24/20 [Last Taken Unknown] indomethacin 25 mg capsule 25 mg PO QID #120 cap 07/24/20 [Last Taken Unknown] insulin glargine 100 unit/mL subcutaneous solution 8 unit SUBCUT BID #10 ml 07/25/20 [Last Taken Unknown] Albuterol Sulfate [Proventil Hfa] 2 dose PO QID PRN 08/15/20 [Last Taken Unknown] Escitalopram Oxalate [Lexapro] 20 mg PO DAILY 08/15/20 [Last Taken Unknown] Valsartan 80 mg PO DAILY 08/15/20 [Last Taken Unknown] traZODone HCL [Trazodone HCl] 100 mg PO HS 08/15/20 [Last Taken Unknown] - Pain Score Pain Score #1 Pain Score: 8 - History of Present History Narrative: pt reports to er for "butt pain" that started 2 days ago. this is his third presentation in the past several days, once for rib pain, once for fatigue, and now for buttocks pain. he has been seen in the past for tailbone pain, had extensive workup and he says this is not the same problem. pain is sharp, in specific area, doesn't radiate and is severe. he was not aware of fever until arrival. 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 he has known h/o drug use in past including methamphetamines. he denies alcohol, and meth use today. smoked thc a few days ago. denies other problems, only the pain in the buttocks. Date (Duration): 08/13/20 Timing: getting worse Severity: moderate Review of Systems - Review of Systems Constitutional: Present: See HPI, fever, fatigue EYE: Present: no symptoms reported ENT: Present: no symptoms reported Respiratory: Present: no symptoms reported - rib pain from a few days ago has improved\\ Cardiology: Absent: chest pain Gastrointestinal/Abdominal: Present: no symptoms reported Skin: Present: See HPI Medical History (Last Reviewed 08/15/20 @ 21:12 by Daina Swartz MD) Hypoglycemic event in diabetes (Acute) Essential hypertension (Chronic) Neck pain, chronic (Chronic) Major depressive disorder (Chronic) 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 sober 2 months. Former tobacco use bone spurs lower back former alcohol use Anxiety Asthma Back pain Carpal tunnel syndrome Onset Date: ~02/16/18 Left Cervical disc disease Depression Diabetes mellitus Mixed hyperlipidemia Onset Date: ~05/28/13 Peripheral neuropathy Onset Date: ~02/16/18 Dr. Garza diagnosed with EMG Surgical History: Surgical History (Last Reviewed 08/15/20 @ 21:12 by Daina Swartz MD) H/O neck surgery History of carpal tunnel release 07/09/2015 Endoscopic Right Carpal Tunnel Release 03/14/2017 Endoscopic Left Carpal Tunnel Release bilateral History of colonoscopy Onset Date: 08/07/18 08/07/18 [facility]-very redundant capacious colon. Recheck 10 yrs. Hx of adenoidectomy Hx of arthroscopic knee surgery 09/24/2004 Dr. Taylor-Right Knee 09/26/2014 Hx of knee surgery 1999, 2005 [facility]; Right Knee Hx of shoulder surgery Onset Date: ~03/29/14 Left Shoulder Hx of tonsillectomy Family History: Family History (Last Reviewed 08/15/20 @ 21:12 by Daina Swartz MD) Father Alive and well Diabetes Mother , age 66-cancer Cancer breast w/mets to bone cancer Brother Alive and well Son Alive and well Son Alive and well Son Alive and well Social History: (Last Reviewed 08/15/20 @ 21:13 by Daina Swartz MD) Social History: Marital status: Single household members: other number of children: 3 current occupational status: disabled Highest education level completed: 10th grade Service: No Tobacco: Smoking Status: Current every day smoker tobacco type: cigarettes Smoking cigarettes per day: 20 Smoking packs per day: 0.5 Alcohol: alcohol intake: former Substance Use: substance use type: former substance user, marijuana Dietary Habits: caffeine: Yes Type: carbonated beverages Personal Safety: victim of physical abuse: No victim of emotional abuse: No Physical Exam - Physical Exam General Appearance: Present: alert, moderate distress Head Exam: Present: normal inspection Eye Exam: Normal inspection: bilateral, PERRL: bilateral Ears, Nose, Throat: Present: normal ENT inspection - dry mucus membranes Neck: Present: normal inspection Respiratory: Present: no respiratory distress, lungs clear Cardiovascular/Chest: Present: no murmur, tachycardia Gastrointestinal/Abdominal: Present: normal bowel sounds Rectal Exam: Present: other - there is 9cm x 5 cm redness, erythema and areas of fluctuance as well as areas of weeping/ purulent drainage. the skin is open at the top of the gluteal cleft is open 1 x 3cm and is weeping. area surrounding this is firm and woody. area of fluctuance extends down to the rectum but does not involve the scrotum/ perineum. this is primarily lateralized to the left side of the gluteal cleft. area is cleaned with povodine swabs X3 and anesthesized with lidocaine 1%. area of fluctuance is incised with 11 blade and wound culture was obtained. very little purulent material was expressed from this area, primarily blood was expelled. i felt that the remainder of the wound was firm and woody and would not be successfully drained. contacted general surgeon business analysis consultant to discuss case. Extremity Exam: Present: normal inspection Neurological Exam: Present: alert, oriented Progress - Results and Orders Patient's Lab Results:: I have reviewed the patient's lab results. Results and Orders: Laboratory Tests 08/15/20 08/15/20 20:37 20:37 WBC 15.7 H Hgb 15.2 Hct 46.3 Plt Count 219 Neutrophils % 86.2 H Sodium 131 L Potassium 4.0 Chloride 96 L Carbon Dioxide 23.2 L Anion Gap 15.8 H BUN 16 Creatinine 0.88 Random Glucose 142 H Total Bilirubin 1.2 H AST 46 ALT 85 H Alkaline Phosphatase 99 - Vital Signs Patient's Vital Signs:: I have reviewed the patient's vital signs. Vital Signs: Vital Signs 08/15/20 20:00 08/15/20 20:58 Temperature 39.2 C H Pulse Rate 131 H 132 H Respiratory Rate 19 20 Blood Pressure 146/108 H 118/66 O2 Sat by Pulse Oximetry 88 L 100 - X-Ray X-Ray #1 X-Ray: chest Interpretation: Interp. by [place] X-ray Comments: hyperinflation, nothing acute. - CT/Ultrasound CT/Ultrasound Narrative: ct of the pelvis is interpreted by radiology as well as dr. Loya. - Progress/Reassessment Chief Complaint: Fever Progress:: Unchanged Progress Note-Subjective: 08/15/20 21:45 Dr. Loya, business analysis consultant general surgery was contacted and he came to bedside to evaluate. he examined pt and recommended pelvic ct for additional information and planned to take the pt to the OR for debridement. CT, covid testing, additional ivfs and iv apap for temp in addition to the abx were ordered. awaiting labs. pt prepped to go to or and then to observation for recovery. 08/15/20 23:23 Pt remained stable until he was taken to OR. He will be sent to observation inpatient in post-op for additional abx and treatment of the abscess. Departure Clinical Impression: Gluteal abscess - Departure Disposition: Still a patient Condition: Fair
[2020-08-15] MEDS ORDERED: ACETAMINOPHEN 1,000 MG/100 ML BTL IV ONE (21:44)
--- NOTE | 2020-08-15 22:05 | HP ---
Chief Complaint - Chief Complaint Date of Service: 08/15/20 Time of Service: 21:50 Chief Complaint: butt pain History of Present Illness: Has had pain in the tailbone for 2 days. Found to be febrile with large abscess. Initial attempt at I&D with no return. Last po intake chicken noodle soup at 3PM Living with a diego. Not taking insulin because he is out until later this month. 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 sober 2 months. Former tobacco use bone spurs lower back former alcohol use Anxiety Asthma Back pain Carpal tunnel syndrome Onset Date: ~02/16/18 Left Cervical disc disease Depression Diabetes mellitus Mixed hyperlipidemia Onset Date: ~05/28/13 Peripheral neuropathy Onset Date: ~02/16/18 Dr. Garza diagnosed with EMG Surgical History: Surgical History (Last Reviewed 08/15/20 @ 21:53 by Néstor Loya MD) H/O neck surgery History of carpal tunnel release 07/09/2015 Endoscopic Right Carpal Tunnel Release 03/14/2017 Endoscopic Left Carpal Tunnel Release bilateral History of colonoscopy Onset Date: 08/07/18 08/07/18 [facility]-very redundant capacious colon. Recheck 10 yrs. Hx of adenoidectomy Hx of arthroscopic knee surgery 09/24/2004 Dr. Taylor-Right Knee 09/26/2014 Hx of knee surgery 1999, 2005 [facility]; Right Knee Hx of shoulder surgery Onset Date: ~03/29/14 Left Shoulder Hx of tonsillectomy Family History: Family History (Last Reviewed 08/15/20 @ 21:53 by Néstor Loya MD) Father Diabetes Alive and well Mother , age 66-cancer Cancer breast w/mets to bone cancer Brother Alive and well Son Alive and well Son Alive and well Son Alive and well Social History: (Last Reviewed 08/15/20 @ 21:53 by Néstor Loya MD) Social History: Marital status: Single household members: other number of children: 3 current occupational status: disabled Highest education level completed: 10th grade Service: No Tobacco: Smoking Status: Current every day smoker tobacco type: cigarettes Smoking cigarettes per day: 20 Smoking packs per day: 0.5 Alcohol: alcohol intake: former Substance Use: substance use type: former substance user, marijuana Dietary Habits: caffeine: Yes Type: carbonated beverages Personal Safety: victim of physical abuse: No victim of emotional abuse: No Review Of Systems (GEN) - Review of Systems Generalized/Overall Review: Present: Fever, Malaise. Absent: Chills EENTM: Present: No Symptoms Reported Respiratory: Present: Other - pain from 3 rib fractures. Absent: Cough, Shortness of Breath Cardiac: Present: No Symptoms Reported Abdominal: Present: Other - no BM today. Absent: Nausea, Vomiting, Abdominal Pain Genitourinary: Absent: Dysuria Musculoskeletal: Present: Other - rib pain Neurological: Present: Other - denies using drugs today, however appears intoxicated Skin: Present: Lesions - over sacrum Endocrine: Present: Other - out of insulin Immunizations: IMMUNIZATION HX Immunizations Up to Date Yes History of Influenza Vaccine Yes Hx Pneumococcal Vaccination No Allergies/Adverse Reactions: Allergies Allergy/AdvReac Type Severity Reaction Status Date / Time Penicillins Allergy Intermediate Hives Verified 08/15/20 20:03 codeine [Codeine] AdvReac Mild Itching Verified 08/15/20 20:03 latex AdvReac Mild RASH Verified 08/15/20 20:03 Home Medications: HOME MEDICATIONS gemfibrozil 600 mg tablet 600 mg PO BID #60 tab 01/11/20 [Last Taken Unknown] lamotrigine 100 mg tablet 50 mg PO DAILY #30 tab 01/11/20 [Last Taken Unknown] metformin 1,000 mg tablet 500 mg PO BIDWM #60 tab 02/01/20 [Last Taken Unknown] insulin syringe-needle U-100 0.3 mL 31 gauge x 04/12" See Rx Instructions .ROUTE .MEDSUPPLY #100 ea 02/05/20 [Last Taken Unknown] albuterol sulfate 90 mcg/actuation aerosol inhaler See Rx Instructions .ROUTE .COMPLEX #8.5 unknown measurement unit code: gram 06/09/20 [Last Taken Unknown] escitalopram oxalate 20 mg tablet See Rx Instructions .ROUTE .COMPLEX #30 unknown measurement unit code: tablet 07/11/20 [Last Taken Unknown] gabapentin 800 mg tablet 800 mg PO QID #120 tab 07/24/20 [Last Taken Unknown] indomethacin 25 mg capsule 25 mg PO QID #120 cap 07/24/20 [Last Taken Unknown] blood-glucose meter See Rx Instructions .ROUTE .MEDSUPPLY #1 ea 07/25/20 [Last Taken Unknown] insulin glargine 100 unit/mL subcutaneous solution 8 unit SUBCUT BID #10 ml 07/25/20 [Last Taken Unknown] lancets See Rx Instructions .ROUTE .MEDSUPPLY #200 ea 07/25/20 [Last Taken Unknown] traMADol HCL [Ultram] 50 mg PO QID PRN #20 tab 08/09/20 [Last Taken Unknown] trazodone 100 mg tablet See Rx Instructions .ROUTE .COMPLEX #30 unknown measurement unit code: tablet 08/11/20 [Last Taken Unknown] valsartan 80 mg tablet See Rx Instructions .ROUTE .COMPLEX #30 unknown measurement unit code: tablet 08/11/20 [Last Taken Unknown] Exam - Exam Vital Signs: Vital Signs - Last Taken Temp 39.2 C H 08/15/20 20:00 Pulse 132 H 08/15/20 20:58 Resp 20 08/15/20 20:58 BP 118/66 08/15/20 20:58 Pulse Ox 100 08/15/20 20:58 Constitutional: Present: Alert, Oriented x3, Other - possibly intoxicated ENT Exam: Present: normal ENT inspection, hearing grossly normal Eye Exam: bilateral eye: normal inspection Neck: Present: full range of motion, normal inspection Back Exam: Present: normal inspection Respiratory: Present: normal breath sounds, no respiratory distress Cardiovascular/Chest: Present: regular rate, rhythm Abdomen: Present: soft, nontender, distended /Rectal: Present: Other - chronic open wound over sacrum with lichenification large firm abscess involving most of left buttock does not appear to involve rec aurora Extremity: Present: normal range of motion, normal inspection, no pedal edema, no calf tenderness Skin Exam: Present: normal color, warm/dry Neurologic: Present: reading aide II-XII nml as tested, alert, oriented x 3 Appearance: Present: disheveled Eye contact: Present: cooperative, normal speech - slight dysarthria Thoughts: Present: other - answers questions appropriately Diagnostic Studies: Abnormal Lab Results 08/15/20 08/15/20 Range/Units 20:37 20:37 WBC 15.7 H (4.0-10.5) K/mm3 Immature Gran # (Auto) 0.07 H (0.000-0.0310) K/mm3 Neutrophils % 86.2 H (42-75.0) % Lymphocytes % 5.7 L (20-51) % Neutrophils # 13.6 H (1.3-6.0) K/mm3 Lymphocytes # 0.89 L (1.5-3.5) k/mm3 Monocytes # 1.1 H (0.0-1.0) k/mm3 Sodium 131 L (132-142) mmol/L Chloride 96 L (97-106) mmol/L Carbon Dioxide 23.2 L (24-32.6) mmol/L Anion Gap 15.8 H (6.8-13.8) mmol/L Random Glucose 142 H (70-110) mg/dL Total Bilirubin 1.2 H (0.0-1.1) mg/dL ALT 85 H (19-67) U/L Albumin 2.9 L (3.4-5.0) gm/dl Laboratory Results WBC 15.7 K/mm3 (4.0-10.5) H 08/15/20 20:37 RBC 5.16 M/mm3 (4.7-6.0) 08/15/20 20:37 Hgb 15.2 gm/dL (13.5-18.0) 08/15/20 20:37 Hct 46.3 % (42.0-52.0) 08/15/20 20:37 MCV 89.7 fl (78-100) 08/15/20 20:37 MCH 29.5 pg (27-31) 08/15/20 20:37 MCHC 32.8 g/dl (32-36) 08/15/20 20:37 RDW 13.2 % (11.5-14.0) 08/15/20 20:37 Plt Count 219 K/mm3 (150-450) 08/15/20 20:37 MPV 9.1 fl (8-11.3) 08/15/20 20:37 Immature Gran % (Auto) 0.40 % (0.001-0.429) 08/15/20 20:37 Immature Gran # (Auto) 0.07 K/mm3 (0.000-0.0310) H 08/15/20 20:37 Neutrophils % 86.2 % (42-75.0) H 08/15/20 20:37 Lymphocytes % 5.7 % (20-51) L 08/15/20 20:37 Monocytes % 7.1 % (0.0-9) 08/15/20 20:37 Eosinophils % 0.3 % (0.0-3.0) 08/15/20 20:37 Basophils % 0.3 % (0.0-1.0) 08/15/20 20:37 Nucleated RBC % 0.0 k/mm3 (0-1) 08/15/20 20:37 Neutrophils # 13.6 K/mm3 (1.3-6.0) H 08/15/20 20:37 Lymphocytes # 0.89 k/mm3 (1.5-3.5) L 08/15/20 20:37 Monocytes # 1.1 k/mm3 (0.0-1.0) H 08/15/20 20:37 Eosinophils # 0.1 k/mm3 (0.0-0.7) 08/15/20 20:37 Absolute Basophils 0.0 k/mm3 (0.0-0.1) 08/15/20 20:37 Sodium 131 mmol/L (132-142) L 08/15/20 20:37 Plasma Sodium 132 mmol/L (130-142) 08/15/20 20:37 Potassium 4.0 mmol/L (3.4-4.6) 08/15/20 20:37 Chloride 96 mmol/L (97-106) L 08/15/20 20:37 Carbon Dioxide 23.2 mmol/L (24-32.6) L 08/15/20 20:37 Anion Gap 15.8 mmol/L (6.8-13.8) H 08/15/20 20:37 BUN 16 mg/dL (6-23) 08/15/20 20:37 Creatinine 0.88 mg/dL (0.4-1.4) 08/15/20 20:37 Est GFR (Non-Af Amer) 99 mL/min (60-130) D 08/15/20 20:37 BUN/Creatinine Ratio 18.2 (9.0-21.6) 08/15/20 20:37 Random Glucose 142 mg/dL (70-110) H 08/15/20 20:37 Calcium 8.7 mg/dL (7.9-10.9) 08/15/20 20:37 Calcium Adj for Albumin 9.3 mg/dL (8.4-10.2) 08/15/20 20:37 Total Bilirubin 1.2 mg/dL (0.0-1.1) H 08/15/20 20:37 AST 46 U/L (0-48) 08/15/20 20:37 ALT 85 U/L (19-67) H 08/15/20 20:37 Alkaline Phosphatase 99 U/L (50-170) 08/15/20 20:37 Total Protein 6.8 gm/dL (6.2-8.2) 08/15/20 20:37 Albumin 2.9 gm/dl (3.4-5.0) L 08/15/20 20:37 Assessment/Plan - Narrative Narrative: This has been present for some time. Whether it started in the sacral wound is unclear. Will obtain a CT to better assess, however it will require the OR for I&D. IV antibiotic has been given and blood cultures done. Explained I&D risks, benefits, and possible course. Questions answered and informed consent obtained. Will obtain Covid test while CT is being done. The CT shows 5cm abscess with no pelvic component - Assessment/Plan (1) Gluteal abscess Problem: Acute
[2020-08-15] MEDS ORDERED: BUPIVACAINE HCL/EPINEPHRINE 50 ML VIAL ONE (23:03)
--- NOTE | 2020-08-15 23:12 | ANES ---
Anesthesia Pre Procedure Eval Vitals/Labs: Last Vital Signs Temp 38.8 C H 08/15/20 22:55 Pulse 118 H 08/15/20 23:08 Resp 13 08/15/20 23:08 BP 102/57 08/15/20 23:08 Pulse Ox 98 08/15/20 23:08 HOME MEDICATIONS gemfibrozil 600 mg tablet 600 mg PO BID #60 tab 01/11/20 [Last Taken Unknown] lamotrigine 100 mg tablet 50 mg PO DAILY #30 tab 01/11/20 [Last Taken Unknown] metformin 1,000 mg tablet 500 mg PO BIDWM #60 tab 02/01/20 [Last Taken Unknown] gabapentin 800 mg tablet 800 mg PO QID #120 tab 07/24/20 [Last Taken Unknown] indomethacin 25 mg capsule 25 mg PO QID #120 cap 07/24/20 [Last Taken Unknown] insulin glargine 100 unit/mL subcutaneous solution 8 unit SUBCUT BID #10 ml 07/25/20 [Last Taken Unknown] Albuterol Sulfate [Proventil Hfa] 2 dose PO QID PRN 08/15/20 [Last Taken Unknown] Escitalopram Oxalate [Lexapro] 20 mg PO DAILY 08/15/20 [Last Taken Unknown] Valsartan 80 mg PO DAILY 08/15/20 [Last Taken Unknown] traZODone HCL [Trazodone HCl] 100 mg PO HS 08/15/20 [Last Taken Unknown] Allergies/Adverse Reactions: Allergies Allergy/AdvReac Type Severity Reaction Status Date / Time Penicillins Allergy Intermediate Hives Verified 08/15/20 20:03 codeine [Codeine] AdvReac Mild Itching Verified 08/15/20 20:03 latex AdvReac Mild RASH Verified 08/15/20 20:03 - Planned Procedure Planned Procedure: buttocks swollen Medication List Reviewed:: Yes Allergies Verified: Yes Medical History (Last Reviewed 08/15/20 @ 23:11 by Alejandro Peterson CRNA) Hypoglycemic event in diabetes (Acute) Essential hypertension (Chronic) Neck pain, chronic (Chronic) Major depressive disorder (Chronic) 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 sober 2 months. Former tobacco use bone spurs lower back former alcohol use Anxiety Asthma Back pain Carpal tunnel syndrome Onset Date: ~02/16/18 Left Cervical disc disease Depression Diabetes mellitus Mixed hyperlipidemia Onset Date: ~05/28/13 Peripheral neuropathy Onset Date: ~02/16/18 Dr. Garza diagnosed with EMG Surgical History (Last Reviewed 08/15/20 @ 23:11 by Alejandro Peterson CRNA) H/O neck surgery History of carpal tunnel release 07/09/2015 Endoscopic Right Carpal Tunnel Release 03/14/2017 Endoscopic Left Carpal Tunnel Release bilateral History of colonoscopy Onset Date: 08/07/18 08/07/18 [facility]-very redundant capacious colon. Recheck 10 yrs. Hx of adenoidectomy Hx of arthroscopic knee surgery 09/24/2004 Dr. Taylor-Right Knee 09/26/2014 Hx of knee surgery 1999, 2005 [facility]; Right Knee Hx of shoulder surgery Onset Date: ~03/29/14 Left Shoulder Hx of tonsillectomy Family History (Last Reviewed 08/15/20 @ 23:11 by Alejandro Peterson CRNA) Father Diabetes Alive and well Mother , age 66-cancer Cancer breast w/mets to bone cancer Brother Alive and well Son Alive and well Son Alive and well Son Alive and well - Family Anesthesia History Family History:: no untoward family reactions to anesthesia - Airway/Neck/Teeth Teeth Condition: none Neck Exam: full range of motion Mallampatti Score: 2 Thyromental (T-M) distance: > 6 cm Mandibulo Hyoid distance: > 3 cm - Respiratory Respiratory History: asthma Respiratory Physical: lungs clear Smoking Status: Current every day smoker Discussed smoking cessation including day of surgery: Yes Sleep Apnea currently treated: No Sleep Apnea by current assessment: No - Cardiovascular Cardiac History: hypertension Tolerate Activity: Fair Heart Sounds: S1 & S2, Regular - Gastrointestinal NPO since: 1529 - Anesthesia Assessment and Plan ASA Class: PS, III, E Anesthesia Type Plan: MAC Planned difficult intubation/equipment available: No
[2020-08-15] MEDS ORDERED: RINGER'S SOLUTION,LACTATED 1,000 ML IV ONE (23:45)
[2020-08-16] MEDS: BUPIVACAINE HCL/EPINEPHRINE 50 ML VIAL IJ ONE ×2 (00:48→09:00)
--- NOTE | 2020-08-16 01:04 | ANES ---
Post Anesthesia Assessment - Vital Signs Vitals: Last Vital Signs Temp 38.2 C H 08/15/20 23:35 Pulse 116 H 08/15/20 23:35 Resp 16 08/15/20 23:35 BP 115/59 08/15/20 23:35 Pulse Ox 99 08/15/20 23:35 Airway Patency: Normal - Mental Status Level Of Consciousness: Awake - Pain Level Pain Score: 0 - N/V Assessment Nausea/Vomiting Presence: None Dehydration:: No
--- NOTE | 2020-08-16 01:04 | ANES ---
Post Anesthesia Discharge - Transfer of Care Transfer of Care handoff given to nurse: Yes - Anesthesia Post Op Note Anesthesia Post Op Note: returned to med surg
[2020-08-16] MEDS: RINGER'S SOLUTION,LACTATED 1,000 ML IV ONE ×2 (01:38→09:05)
[2020-08-16] MEDS: oxyCODONE HCL/ACETAMINOPHEN 1 TAB TABLET PO PRN ×5 (01:42→20:37)
[2020-08-16] MEDS ORDERED: INSULIN REGULAR, HUMAN 100 UNITS/ML VIAL SC ONE (01:45)
[2020-08-16] MEDS: IBUPROFEN 800 MG TABLET PO PRN ×2 (03:24→22:10)
[2020-08-16] MEDS: NORMAL SALINE 1,000 ML IV SCH (07:51)
[2020-08-16] MEDS ORDERED: BUPIVACAINE HCL/EPINEPHRINE 50 ML VIAL ONE (08:35)
--- NOTE | 2020-08-16 08:39 | ANES ---
Anesthesia Pre Procedure Eval Vitals/Labs: Last Vital Signs Temp 36.7 C 08/16/20 06:38 Pulse 101 H 08/16/20 06:38 Resp 16 08/16/20 06:38 BP 99/52 08/16/20 06:38 Pulse Ox 100 08/16/20 06:38 HOME MEDICATIONS gemfibrozil 600 mg tablet 600 mg PO BID #60 tab 01/11/20 [Last Taken Unknown] lamotrigine 100 mg tablet 50 mg PO DAILY #30 tab 01/11/20 [Last Taken Unknown] metformin 1,000 mg tablet 500 mg PO BIDWM #60 tab 02/01/20 [Last Taken Unknown] gabapentin 800 mg tablet 800 mg PO QID #120 tab 07/24/20 [Last Taken Unknown] indomethacin 25 mg capsule 25 mg PO QID #120 cap 07/24/20 [Last Taken Unknown] insulin glargine 100 unit/mL subcutaneous solution 8 unit SUBCUT BID #10 ml 07/25/20 [Last Taken Unknown] Albuterol Sulfate [Proventil Hfa] 2 dose PO QID PRN 08/15/20 [Last Taken Unknown] Escitalopram Oxalate [Lexapro] 20 mg PO DAILY 08/15/20 [Last Taken Unknown] Valsartan 80 mg PO DAILY 08/15/20 [Last Taken Unknown] traZODone HCL [Trazodone HCl] 100 mg PO HS 08/15/20 [Last Taken Unknown] Allergies/Adverse Reactions: Allergies Allergy/AdvReac Type Severity Reaction Status Date / Time Penicillins Allergy Intermediate Hives Verified 08/15/20 20:03 codeine [Codeine] AdvReac Mild Itching Verified 08/15/20 20:03 latex AdvReac Mild RASH Verified 08/15/20 20:03 - Planned Procedure Planned Procedure: packing change lt buttock abcess Medication List Reviewed:: Yes Allergies Verified: Yes Medical History (Last Reviewed 08/16/20 @ 08:38 by Alejandro Peterson CRNA) Hypoglycemic event in diabetes (Acute) Essential hypertension (Chronic) Neck pain, chronic (Chronic) Major depressive disorder (Chronic) 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 sober 2 months. Former tobacco use bone spurs lower back former alcohol use Anxiety Asthma Back pain Carpal tunnel syndrome Onset Date: ~02/16/18 Left Cervical disc disease Depression Diabetes mellitus Mixed hyperlipidemia Onset Date: ~05/28/13 Peripheral neuropathy Onset Date: ~02/16/18 Dr. Garza diagnosed with EMG Surgical History (Last Reviewed 08/16/20 @ 08:38 by Alejandro Peterson CRNA) H/O neck surgery History of carpal tunnel release 07/09/2015 Endoscopic Right Carpal Tunnel Release 03/14/2017 Endoscopic Left Carpal Tunnel Release bilateral History of colonoscopy Onset Date: 08/07/18 08/07/18 [facility]-very redundant capacious colon. Recheck 10 yrs. Hx of adenoidectomy Hx of arthroscopic knee surgery 09/24/2004 Dr. Taylor-Right Knee 09/26/2014 Hx of knee surgery 1999, 2005 [facility]; Right Knee Hx of shoulder surgery Onset Date: ~03/29/14 Left Shoulder Hx of tonsillectomy Family History (Last Reviewed 08/16/20 @ 08:38 by Alejandro Peterson CRNA) Father Diabetes Alive and well Mother , age 66-cancer Cancer breast w/mets to bone cancer Brother Alive and well Son Alive and well Son Alive and well Son Alive and well - Family Anesthesia History Family History:: no untoward family reactions to anesthesia - Airway/Neck/Teeth Within Normal Limits:: Yes Teeth Condition: none Neck Exam: full range of motion Mallampatti Score: 2 Thyromental (T-M) distance: > 6 cm Mandibulo Hyoid distance: > 3 cm - Respiratory Respiratory History: asthma Smoking Status: Current every day smoker Discussed smoking cessation including day of surgery: Yes Sleep Apnea currently treated: No Sleep Apnea by current assessment: No - Cardiovascular Cardiac History: hypertension Tolerate Activity: Fair Heart Sounds: S1 & S2, Regular - Gastrointestinal NPO since: 129 - Anesthesia Assessment and Plan ASA Class: PS, III Anesthesia Type Plan: MAC Planned difficult intubation/equipment available: No
--- NOTE | 2020-08-16 08:43 | OR ---
Operative Report - Dictated Report Narrative: OPERATIVE REPORT DATE OF OPERATION: 08/16/2020 PREOPERATIVE DIAGNOSIS: Left buttock abscess POSTOPERATIVE DIAGNOSIS: Grade 4 sacral ulcer, left buttock abscess OPERATION: Incision and drainage of left buttock abscess. Debridement and biopsy of sacral ulcer SURGEON: Néstor Loya MD ANESTHESIA: KARLEE Peterson CRNA INDICATIONS FOR PROCEDURE: The patient is a 44-year-old male who presented to the emergency room with buttock pain. He was found to be febrile with an elevated white blood cell count, with an abscess involving the left buttock. There is a full-thickness sacral ulcer as well. Attempted I&D by the ERP was unsuccessful. He was given IV antibiotics and blood cultures were performed. He has brought to the OR for definitive I&D. FINDINGS: 3 cm x 2 cm grade 4 sacral ulcer. 11 cm x 7 cm left buttock abscess (pathology and C&S pending) NARRATIVE OF PROCEDURE: The patient was identified preoperatively, the surgical site was identified, and prior to the administration of anesthetic a multidisciplinary timeout was observed. With the patient in the left lateral position and after the administration of intravenous sedation the perineum was prepped with Betadine solution and isolated with 4 sterile towels. The remainder the patient was covered with a sterile disposable drape. The area over the sacrum and inflamed areas on the left buttock were infiltrated with 0.5% Marcaine with epinephrine. The area was inspected. There was a 3 x 2 cm area of eschar over the sacrum with surrounding lichenification. There was an 11 cm x 7 cm mass in the left buttock. The previous incision site had stopped bleeding. Medial to this was an additional 2 x 3 cm area which did produce some purulent drainage. Digital rectal exam revealed no evidence of involvement of the anal canal or perirectal space. Initially a cruciate incision was made over the center of the mass in the left buttock. This produced some old blood. The area was digitally explored no additional loculations were encountered. An elliptical biopsy of the advancing border of the sacral ulcer was obtained and submitted to pathology. The eschar was then sharply debrided back to more viable appearing tissue. 1 additional specimen was submitted. Purulent drainage was encountered from the caudal end of the ulcer. This was submitted for culture. Probing revealed a purulent collection extending into the left buttock. This was explored with a hemostat and a counterincision was made to allow irrigation of the cavity. The cavity was irrigated with a large amount of saline until the return was clear. The I&D site in the left buttock was packed with 2 inch iodoform gauze. A 1/2 inch Sully drain was placed through the 2 ends of the abscess cavity and tied loosely over the skin. The sacral ulcer was packed with 2 inch iodoform gauze. The operative site was washed and dried. A dressing of 4 x 4, Mepilex border, and Medipore tape was applied. The patient tolerated the operative procedure well without complication. All counts were correct. There was minimal blood loss. A tissue sample from the sacral ulcer was submitted to pathology. The patient was transferred to the floor awake and in stable condition. The patient will require observation status for IV hydration, pain control, blood sugar and temperature monitoring, and will be returned to the OR in the morning for reassessment and packing change. Reviewed and electronically signed
--- NOTE | 2020-08-16 09:38 | ANES ---
Post Anesthesia Discharge - Transfer of Care Transfer of Care handoff given to nurse: Yes - Anesthesia Post Op Note Anesthesia Post Op Note: transferred to [facility]-surg
--- NOTE | 2020-08-16 09:39 | ANES ---
Post Anesthesia Assessment - Vital Signs Vitals: Last Vital Signs Temp 36.7 C 08/16/20 06:38 Pulse 101 H 08/16/20 06:38 Resp 16 08/16/20 06:38 BP 99/52 08/16/20 06:38 Pulse Ox 100 08/16/20 06:38 Airway Patency: Normal - Mental Status Level Of Consciousness: Awake - Pain Level Pain Score: 0 - N/V Assessment Nausea/Vomiting Presence: None Dehydration:: No
[2020-08-16] MEDS ORDERED: RINGER'S SOLUTION,LACTATED 1,000 ML IV ONE (09:50)
--- NOTE | 2020-08-16 10:04 | OR ---
Operative Report - Dictated Report Narrative: OPERATIVE REPORT DATE OF OPERATION: 08/16/2020 PREOPERATIVE DIAGNOSIS: Sacral ulcer. Left buttock abscess POSTOPERATIVE DIAGNOSIS: Same (improved) OPERATION: Packing change and dressing change under anesthesia SURGEON: Néstor Loya MD ANESTHESIA: KARLEE Peterson CRNA INDICATIONS FOR PROCEDURE: The patient is a 44-year-old male who presented to the emergency room with fever, elevated white blood cell count. He was found to have a grade 4 sacral ulcer and an 11 x 7 cm area of swelling in the left buttock, with CT scan evidence of a large abscess on the left buttock. FINDINGS: Marked improvement in inflammation. Viable tissue in the base of the sacral ulcer. No extension of the inflammatory process NARRATIVE OF PROCEDURE: The patient was identified preoperatively, the surgical site was identified, and prior to the administration of intravenous sedation a multidisciplinary timeout was observed. The previous dressing was removed and the perineum prepped with Betadine solution. The perineum was isolated with 4 sterile towels and the remainder the patient was covered with sterile disposable drapes. The area around the wounds was infiltrated with 0.5% Marcaine with epinephrine. The packing in the sacral wound was removed. There was no evidence of further extension. The base of the ulcer did evidence viable tissue. The cavity under the [place] drain demonstrated improvement, with no evidence of extension. The packing in the left buttock wound was removed. There was no additional blood or purulent material. 2 inch iodoform gauze was placed in the sacral ulcer and a 2 inch iodoform wick was placed in the left buttock I&D site. A dressing of Mepilex border and Medipore tape was applied. The operative procedure was terminated at this point. The patient tolerated the anesthetic and procedure well without complication. There was no measurable blood loss. No specimens were submitted. All counts were correct. The patient was transferred back to the floor awake and in stable condition. The patient will require admission to acute care status for continuing monitoring of temperature, for signs of sepsis, blood sugar monitoring, dressing changes, and IV antibiotics. Reviewed and electronically signed
--- NOTE | 2020-08-16 10:12 | PN ---
Subjective - Date and Time Seen Date: 08/16/20 Time: 09:40 Objective - Review of Systems Generalized/Overall Review: Reports: Fever. Denies: Chills EENTM: Reports: No Symptoms Reported Respiratory: Reports: No Symptoms Reported. Denies: Cough, Shortness of Breath Cardiac: Reports: No Symptoms Reported, Other - He has been tachycardic, and has had episodic low blood pressure. Denies: Chest Pain Abdominal: Denies: Nausea, Vomiting, Abdominal Pain Genitourinary Symptoms: Reports: Other - He reports marked improvement in his buttock and sacral discomfort. The original dressing has stayed intact with moderate drainage Musculoskeletal Complaints: Reports: No Symptoms Reported Neurological: Reports: No Symptoms Reported Skin: Reports: No Symptoms Reported Endocrine: Reports: Increased Hunger, Increased Thirst, Other - Vitals Vitals: Last Vital Signs Temp 36.5 C 08/16/20 09:35 Pulse 93 08/16/20 09:35 Resp 16 08/16/20 09:35 BP 85/56 L 08/16/20 09:35 Pulse Ox 97 08/16/20 09:35 - Abnormal Lab Findings Abnormal Lab Findings: Abnormal Lab Results 08/15/20 08/15/20 Range/Units 20:37 20:37 WBC 15.7 H (4.0-10.5) K/mm3 Immature Gran # (Auto) 0.07 H (0.000-0.0310) K/mm3 Neutrophils % 86.2 H (42-75.0) % Lymphocytes % 5.7 L (20-51) % Neutrophils # 13.6 H (1.3-6.0) K/mm3 Lymphocytes # 0.89 L (1.5-3.5) k/mm3 Monocytes # 1.1 H (0.0-1.0) k/mm3 Sodium 131 L (132-142) mmol/L Chloride 96 L (97-106) mmol/L Carbon Dioxide 23.2 L (24-32.6) mmol/L Anion Gap 15.8 H (6.8-13.8) mmol/L Random Glucose 142 H (70-110) mg/dL Total Bilirubin 1.2 H (0.0-1.1) mg/dL ALT 85 H (19-67) U/L Albumin 2.9 L (3.4-5.0) gm/dl - Exam Constitutional: Present: Alert, Oriented x3, Cooperative, Other - To less agitated than last night ENT Exam: Present: normal ENT inspection Neck: Present: full range of motion, normal inspection Respiratory: Present: normal breath sounds, no respiratory distress Cardiovascular/Chest: Present: regular rate, rhythm, other - Less tachycardic. BP still low Abdomen: Present: soft, nontender /Rectal: Present: Other - See operative report for findings current dressing dry and intact Extremity: Present: normal range of motion Skin Exam: Present: warm/dry Neurologic: Present: party plan sales host/hostess II-XII nml as tested, oriented x 3, other - Less dysarthric Appearance: Present: disheveled, other - More comfortable Thoughts: Present: normal thought pattern - Thoughts much more collected Assessment/Plan - Problems/Diagnosis (1) Left buttock abscess Problem: Acute Narrative: The sacral ulcer and the left buttock abscess are markedly improved. He will require continued IV antibiotics and dressing changes (2) Diabetes Problem: Chronic Qualifiers: Diabetes mellitus type: type 2 Diabetes mellitus superintendent container terminal insulin use: without superintendent container terminal use Diabetes mellitus complication status: without complication Qualified Code(s): E11.9 - Type 2 diabetes mellitus without complications Narrative: Currently his sugars have been controlled. We will need to continue to monitor these, and will use a low dose regular insulin protocol for elevations (3) Essential hypertension Problem: Chronic Narrative: Will hold his antihypertensive medication. He may need fluid boluses for low blood pressure, although his urine output has been good and he is less tachycardic than last night.
[2020-08-16] MEDS: RINGER'S SOLUTION,LACTATED 1,000 ML IV PRN ×2 (10:51→20:29)
[2020-08-16] MEDS: INSULIN REGULAR, HUMAN 100 UNITS/ML VIAL SC SCH ×4 (10:54→21:24)
[2020-08-16] MEDS: LEVOFLOXACIN IN DEXTROSE 5 % 750 MG/150 ML BAG IV SCH (10:57)
[2020-08-16] MEDS: metroNIDAZOLE/SODIUM CHLORIDE 500 MG/100 ML BAG IV SCH ×2 (10:59→18:57)
[2020-08-16] MEDS: GABAPENTIN 400 MG CAPSULE PO SCH ×4 (11:02→20:32)
[2020-08-16] MEDS: ESCITALOPRAM OXALATE 10 MG TAB PO SCH (11:02)
[2020-08-16] MEDS: lamoTRIgine 100 MG TABLET PO SCH (11:10)
[2020-08-16] MEDS: traZODone HCL 50 MG TABLET PO SCH (20:33)
[2020-08-17] MEDS: metroNIDAZOLE/SODIUM CHLORIDE 500 MG/100 ML BAG IV SCH ×3 (02:29→17:18)
[2020-08-17] MEDS: RINGER'S SOLUTION,LACTATED 1,000 ML IV PRN ×3 (04:24→21:25)
[2020-08-17] MEDS: oxyCODONE HCL/ACETAMINOPHEN 1 TAB TABLET PO PRN ×3 (04:59→18:36)
[2020-08-17] MEDS: INSULIN REGULAR, HUMAN 100 UNITS/ML VIAL SC SCH ×4 (07:04→21:39)
[2020-08-17] MEDS: IBUPROFEN 800 MG TABLET PO PRN ×2 (07:16→16:34)
[2020-08-17] MEDS: lamoTRIgine 100 MG TABLET PO SCH (08:23)
[2020-08-17] MEDS: ESCITALOPRAM OXALATE 10 MG TAB PO SCH (08:24)
[2020-08-17] MEDS: GABAPENTIN 400 MG CAPSULE PO SCH ×4 (08:24→21:23)
--- NOTE | 2020-08-17 09:58 | PN ---
Subjective - Date and Time Seen Date: 08/17/20 Time: 09:51 Subjective Narrative: He had 1 elevated temperature last night. His blood pressures are back up to over 100. He has requested straight cath with only small volume. He complains of some swelling Objective - Review of Systems Generalized/Overall Review: Reports: Fever EENTM: Reports: No Symptoms Reported Respiratory: Reports: No Symptoms Reported. Denies: Cough, Shortness of Breath Cardiac: Reports: No Symptoms Reported. Denies: Chest Pain, Palpitations Abdominal: Denies: Abdominal Pain Genitourinary Symptoms: Reports: Other - The dressing was changed once. He does not complain of much discomfort Musculoskeletal Complaints: Reports: No Symptoms Reported Neurological: Reports: No Symptoms Reported Skin: Reports: No Symptoms Reported - Vitals Vitals: Last Vital Signs Temp 37 C 08/17/20 07:41 Pulse 94 08/17/20 07:41 Resp 20 08/17/20 07:41 BP 95/53 08/17/20 07:41 Pulse Ox 95 08/17/20 07:41 - Exam Constitutional: Present: Alert, Oriented x3, Cooperative, Other - He is much less agitated. Currently appears the same as when I saw him as an outpatient ENT Exam: Present: normal ENT inspection Neck: Present: full range of motion, normal inspection Respiratory: Present: no respiratory distress Cardiovascular/Chest: Present: regular rate, rhythm Abdomen: Present: other - Denies pain or tenderness. Is eating without problem /Rectal: Present: Other - The sacral wound is clean. There is good drainage with the Sully. The "new" swelling is induration that was there previously. The buttock incision has minimal drainage Extremity: Present: normal range of motion, no pedal edema, no calf tenderness Skin Exam: Present: warm/dry Neurologic: Present: oriented x 3, other - Dysarthria stable. Baseline spasticity Eye contact: Present: cooperative, good eye contact Thoughts: Present: no apparent hallucination Assessment/Plan - Problems/Diagnosis (1) Left buttock abscess Problem: Acute Narrative: There is good drainage and the wounds are clean. Awaiting culture results from I&D. ER staph report may be skin contaminant Packing changed. Dressing changed. Will continue current antibiotics until final culture report available. We will plan to discharge tomorrow if remains afebrile (2) Diabetes Problem: Chronic Qualifiers: Diabetes mellitus type: type 2 Diabetes mellitus keno terminal operator insulin use: without jail use Diabetes mellitus complication status: without complication Qualified Code(s): E11.9 - Type 2 diabetes mellitus without complications Narrative: His sugars have not been markedly elevated. He states he eats a regular diet at home. (3) Essential hypertension Problem: Chronic Narrative: His blood pressure is now more normal
[2020-08-17] MEDS: LEVOFLOXACIN IN DEXTROSE 5 % 750 MG/150 ML BAG IV SCH (11:16)
[2020-08-17] MEDS: traZODone HCL 50 MG TABLET PO SCH (21:23)
[2020-08-18] MEDS: metroNIDAZOLE/SODIUM CHLORIDE 500 MG/100 ML BAG IV SCH ×2 (01:59→09:06)
[2020-08-18] MEDS: oxyCODONE HCL/ACETAMINOPHEN 1 TAB TABLET PO PRN ×2 (02:08→06:31)
[2020-08-18 06:47] LABS: Hematocrit 37.1 % (42.0-52.0); Hemoglobin 12.1 gm/dL (13.5-18.0); Mean Cell Volume 90.3 fl (78-100); Mean Corpuscular Hemoglobin 29.4 pg (27-31); Mean Corpuscular Hgb Conc 32.6 g/dl (32-36); Mean Platelet Volume 9.5 fl (8-11.3); Neutrophil # 5.3 K/mm3 (1.3-6.0); Neutrophil % 76.4 % (42-75.0); Platelet Count 202 K/mm3 (150-450); Red Blood Count 4.11 M/mm3 (4.7-6.0); Red Cell Distribution Width 13.5 % (11.5-14.0)
[2020-08-18] MEDS: INSULIN REGULAR, HUMAN 100 UNITS/ML VIAL SC SCH ×2 (07:28→11:50)
[2020-08-18] MEDS: LEVOFLOXACIN IN DEXTROSE 5 % 750 MG/150 ML BAG IV SCH (09:06)
[2020-08-18] MEDS: lamoTRIgine 100 MG TABLET PO SCH (09:20)
[2020-08-18] MEDS: GABAPENTIN 400 MG CAPSULE PO SCH (09:20)
[2020-08-18] MEDS: ESCITALOPRAM OXALATE 10 MG TAB PO SCH (09:21)
[2020-08-18] MEDS ORDERED: SULFAMETHOXAZOLE/TRIMETHOPRIM 1 TAB TABLET PO SCH (10:00)
--- NOTE | 2020-08-18 10:55 | DS ---
(1) Left buttock abscess Problem: Acute (2) Diabetes Problem: Chronic Qualifiers: Diabetes mellitus type: type 2 Diabetes mellitus emt intermediate insulin use: without half-way use Diabetes mellitus complication status: without complication Qualified Code(s): E11.9 - Type 2 diabetes mellitus without complications (3) Essential hypertension Problem: Chronic Date of Discharge:: 08/18/20 Hospital Course: He was taken to the operating room for incision and drainage of a left buttock abscess. There was also a grade 4 sacral ulcer which was debrided and biopsied. A Sully drain and iodoform packing was placed. He was begun on IV antibiotics pending cultures. He was returned to the operating room the following morning for packing change. The wounds appeared markedly improved. He developed a fever and so was kept in acute care for continued antibiotics and dressing changes. His vital signs remained stable, he remained afebrile for 24 hours and his white blood cell count returned to normal. Culture of the wound revealed MRSA which was sensitive to Bactrim. He will be discharged home with dressing materials to change the dressing as needed. A return office appointment will be made for tomorrow. He will resume his previous medications as listed in the history and physical exam. Will arrange for a short-term follow-up with his PCP. New prescription for Bactrim p.o. twice daily was transmitted electronically. Procedures Performed: see notes below - Debridement sacral ulcer, incision and drainage left buttock abscess. Packing change Results and Findings: Pending Mircobiology Results 08/15/20 21:24 Blood Blood Culture - Preliminary NO GROWTH AFTER 48 HOURS 08/15/20 20:37 Blood Blood Culture - Preliminary NO GROWTH AFTER 48 HOURS Lab Pending Results 08/15/20 20:37: WBC 15.7 H, RBC 5.16, Hgb 15.2, Hct 46.3, MCV 89.7, MCH 29.5, MCHC 32.8, RDW 13.2, Plt Count 219, MPV 9.1, Immature Gran % (Auto) 0.40, I mmature Gran # (Auto) 0.07 H, Neutrophils % 86.2 H, Lymphocytes % 5.7 L, Monocytes % 7.1, Eosinophils % 0.3, Basophils % 0.3, Nucleated RBC % 0.0, Neutrophils # 13.6 H, Lymphocytes # 0.89 L, Monocytes # 1.1 H, Eosinophils # 0.1, Absolute Basophils 0.0 08/15/20 20:37: Sodium 131 L, Plasma Sodium 132, Potassium 4.0, Chloride 96 L, Carbon Dioxide 23.2 L, Anion Gap 15.8 H, BUN 16, Creatinine 0.88, Est GFR (Non- Af Amer) 99 D, BUN/Creatinine Ratio 18.2, Random Glucose 142 H, Calcium 8.7, Calcium Adj for Albumin 9.3, Total Bilirubin 1.2 H, AST 46, ALT 85 H, Alkaline Phosphatase 99, Total Protein 6.8, Albumin 2.9 L 08/15/20 21:49: SARS-CoV-2 (PCR) Not detected 08/16/20 01:00: Pathology Specimen Sent to path 08/18/20 06:00: WBC 7.0 D, RBC 4.11 L, Hgb 12.1 L, Hct 37.1 L, MCV 90.3, MCH 29.4, MCHC 32.6, RDW 13.5, Plt Count 202, MPV 9.5, Immature Gran % (Auto) 0.30, Immature Gran # (Auto) 0.02, Neutrophils % 76.4 H, Lymphocytes % 12.5 L, Monocytes % 7.2, Eosinophils % 3.2 H, Basophils % 0.4, Nucleated RBC % 0.0, Neutrophils # 5.3, Lymphocytes # 0.87 L, Monocytes # 0.5, Eosinophils # 0.2, Absolute Basophils 0.0 Culture returned MRSA Discharge Location: Home Disposition: Home self-care Condition: Good Discharge Activity: Activity as tolerated Discharge Diet: Consistent carbs Referrals: Jean Thao MD [Primary Care Provider] - Additional Patient Instructions (free text): He is to change the dressing as needed. Return office appointment with Dr. Loya for 08/19/2020. Short-term follow-up with PCP Complete Home Medications List: Complete Home Medication List: gemfibrozil 600 mg tablet 600 mg PO BID #60 tab 01/11/20 lamotrigine 100 mg tablet 50 mg PO DAILY #30 tab 01/11/20 metformin 1,000 mg tablet 500 mg PO BIDWM #60 tab 02/01/20 gabapentin 800 mg tablet 800 mg PO QID #120 tab 07/24/20 indomethacin 25 mg capsule 25 mg PO QID #120 cap 07/24/20 insulin glargine 100 unit/mL subcutaneous solution 8 unit SUBCUT BID #10 ml 07/25/20 Albuterol Sulfate [Proventil Hfa] 2 dose PO QID PRN 08/15/20 Escitalopram Oxalate [Lexapro] 20 mg PO DAILY 08/15/20 Valsartan 80 mg PO DAILY 08/15/20 traZODone HCL [Trazodone HCl] 100 mg PO HS 08/15/20 Sulfamethoxazole/Trimethoprim [Bactrim Ds] 1 tab PO BID #14 tab 08/18/20 Forms: Patient Portal Registration
[2020-08-18 14:14] VITALS: BP 124/77
[2020-08-18] MEDS ORDERED: POLYETHYLENE GLYCOL 3350 17 GM PACKET PO SCH (14:15)
== END 2020-08-18 14:29 | disposition home or self-care (01) ==
LOC: ER 19:50 → MS 21:47 → AMB 21:47
PROVIDERS: ADMIT Surgery; ATTEND Surgery
DX: I10 Essential (primary) hypertension; J45.909 Unspecified asthma, uncomplicated; Z16.39 Resistance to other specified antimicrobial drug; E11.622 Type 2 diabetes mellitus with other skin ulcer; B95.62 Methicillin resistant Staphylococcus aureus infection as the cause of diseases classified elsewhere; L98.421 Non-pressure chronic ulcer of back limited to breakdown of skin; L02.31 Cutaneous abscess of buttock; Z79.4 Long term (current) use of insulin; Z11.59 Encounter for screening for other viral diseases